=== PATIENT | female | born 1955 | race Caucasian/White ===

== ENCOUNTER → 2018-04-03 10:38 | Outpatient (CLI) | payer MEDICAID, SELFPAY ==
--- NOTE | 2018-04-03 10:40 | MM_ITS ---
MM Dig screening mamm BI w/CAD ORDERING PHYSICIAN : Thomas Puente PATIENT AGE: 62 years GENDER: Female COMPARISON: We have been waiting on previous studies from [facility] but these is been purged INDICATION: ITS.REASON: screening. No hormones. No new complaints. Family history. Mother with breast cancer in her 50s. Sister breast cancer late 40s. TECHNIQUE: Standard CC and MLO images were obtained. Additional axillary cc both breast R2 CAD reviewed. FINDINGS: We have been waiting on previous studies from [facility] but these is been purged Moderately dense inhomogeneous breast tissue pattern. RIGHT BREAST:Right moderate dense breast tissue fairly homogeneous appearance to the right breast with no areas of significant concern. Stable LEFT BREAST: Mild asymmetry. The left breast tissue is most dense technique at central and superior superiorly on MLO view... . It does seem to dissipate somewhat on the CC and axillary cc view with no discrete focal area of significant concern.. However I would suggest follow-up left mammogram 6 months to confirm stability since no prior studies available.. There is a small series of fairly dense series of crush stone likely calcifications at the central breast which it appears most likely benign I can be followed at that time as well. Faintly seen. .. I would encourage annual follow-up however for ongoing evaluation. Again if any prior studies become available would be helpful IMPRESSION: Fairly dense breast bilaterally With mild asymmetry focal area but no of significant concern currently/, no suspicious findings currently. However would suggest a follow-up left mammogram in 6 months to confirm stability the mild asymmetry & ensure stable baseline character. Of minor benign-appearing observations BI-RADS Category: 3 Benign Finding Short Term Follow-up RECOMMENDED FOLLOW-UP: 6M 6 MONTH FOLLOW-UP Follow-up left mammogram 6 months to confirm stable baseline character (A letter has been sent to the patient regarding results of the study.)
== END ==
PROVIDERS: Family Provider Emergency Medicine; PCP Nurse Practitioner Family; Visit Provider Nurse Practitioner Family
DX: Z12.31 Encounter for screening mammogram for malignant neoplasm of breast (principal)
CPT/HCPCS: 77067

== ENCOUNTER 2018-08-11 12:01 | Observation (INO) ==
[2018-08-11 12:25] LABS: Basophils % 0.1 % (0.1-2.0); Eosinophils # 0.1 K/mm3 (0.0-0.4); Eosinophils % 0.5 % (0.1-12.0); Hematocrit 29.8 % (37.0-47.0); Lymphocytes # 0.9 K/mm3 (0.7-4.5); Lymphocytes % 7.4 % (10-50); Mean Corpuscular HGB Conc 33.5 g/dL (31.8-35.4); Mean Corpuscular Hemoglobin 32.1 pg (27.0-31.2); Mean Corpuscular Volume 95.8 fl (81-99); Mean Platelet Volume 7.2 fl (7.4-10.4); Monocytes # 0.6 K/mm3 (0.1-1.0); Neutrophils # 10.1 K/mm3 (1.8-7.8); Neutrophils % 87.1 % (37.0-80.0); Platelet Count 239 K/mm3 (142-424); Red Blood Count 3.11 M/mm3 (4.20-5.40); Red Cell Distribution Width 14.4 % (11.5-17.5); White Blood Count 11.6 K/mm3 (4.8-10.8)
[2018-08-11 12:33] LABS: Albumin Level 3.2 gm/dL (3.4-5.0); Bilirubin,Total 0.5 mg/dL (0.2-1.0); Calcium 7.7 mg/dL (8.5-10.1); Globulin 3.2 gm/dl (1.3-3.2); Total Protein,Serum 6.4 gm/dL (6.4-8.2)
[2018-08-11 12:51] LABS: Lymphocytes % 7 % (10-50); Monocytes % 3 % (2-9); Neutrophils % 81 % (42-76); Total Cells Counted 100
[2018-08-11 12:52] LABS: RBC Morphology Normal
[2018-08-11 13:17] LABS: Activated Partial Thrombo Time 29.6 seconds (23.6-34.0); INR 1.01 (0.9-1.1); Prothrombin Time 10.4 seconds (9.4-11.8)
--- NOTE | 2018-08-11 13:17 | Emergency Department Note ---
ED Disposition Clinical Impression: Alcohol use disorder, Hyponatremia, Anemia, Uterine neoplasm Disposition: Still a Patient Condition on Discharge: Fair Referrals: Provider,Referral, [Primary Care Provider] - - Critical Care Critical Care Time: No Attestation: On 08/11/18, the high probability of a clinically significant, sudden or life threatening deterioration of the following system(s) required my full and direct attention, intervention and personal management. The time I documented below is in addition to time spent performing reported procedures but includes the following listed in this critical care notation. Medical Decision Making - Brodie Inquiry Pt receiving controlled substance: No Brodie was queried for this patient: No Vital Signs: 08/11/18 11:52 08/11/18 12:17 08/11/18 15:28 Temperature 98.0 F Temperature Source Oral Oral Pulse Rate [Right Brachial] 95 H 100 H 114 H Respiratory Rate 18 18 Blood Pressure [Right Arm] 102/56 L 119/72 123/70 Blood Pressure Mean [Right Arm] 71 87 87 Blood Pressure Source [Right Arm] Automatic Cuff Automatic Cuff Automatic Cuff Blood Pressure Position [Right Arm] Sitting Sitting Sitting 02 Sat by Pulse Oximetry 97 98 96 Oxygen Delivery Method Room Air Room Air Room Air - Lab Data Lab Results 08/11/18 12:10: WBC 11.6 H, RBC 3.11 L, Hgb 10.0 L, Hct 29.8 L, MCV 95.8, MCH 32.1 H, MCHC 33.5, RDW 14.4, Plt Count 239, MPV 7.2 L, Neut % (Auto) 87.1 H, Lymph % (Auto) 7.4 L, [place] % (Auto) 5.0, Eos % (Auto) 0.5, Baso % (Auto) 0.1, Neut # (Auto) 10.1 H, Lymph # (Auto) 0.9, [place] # (Auto) 0.6, Eos # (Auto) 0.1, Baso # (Auto) 0.0, Total Counted 100, Neutrophils % (Manual) 81 H, Band Neutrophils % 5.0, Lymphocytes % (Manual) 7 L, Atypical Lymphs % 4.0, Monocytes % (Manual) 3, Platelet Estimate Normal, RBC Morphology Normal 08/11/18 12:10: Sodium 127 L, Potassium 4.0, Chloride 91 L, Carbon Dioxide 22, Anion Gap 18.0 H, BUN 9, Creatinine 1.23 H, Estimated Creat Clear 46, Estimated GFR 44 L, Est GFR ( Amer) 54 L, Glucose 100, Calcium 7.7 L, Total Bilirubin 0.5, AST 25, ALT 16, Alkaline Phosphatase 57, Total Protein 6.4, Albumin 3.2 L, Globulin 3.2, Albumin/Globulin Ratio 1.0 L, Plasma/Serum Alcohol 79 08/11/18 12:10: PT 10.4, INR 1.01, APTT 29.6 08/11/18 12:10: Serum HCG, Qual Negative Result diagrams: 08/11/18 12:10 08/11/18 12:10 Orders (Tests/Meds): ED MEDICATIONS Generic Name Dose Route Start Last Admin Trade Name Freq PRN Reason Stop Dose Admin Sodium Chloride 1,000 mls @ 999 mls/hr 08/11/18 13:30 Sod Chlor 0.9% 1000ml Bag IV 08/11/18 14:30 .Q1H1M CORNEL Sodium Chloride 10 ml 08/11/18 12:04 Saline Flush 10ml Syringe IV 09/10/18 12:03 NEEDED PRN Maintain IV Site Discontinued Medications Generic Name Dose Route Start Last Admin Trade Name Freq PRN Reason Stop Dose Admin Diatrizoate Meglum/Diatrizoate Sod 30 ml 08/11/18 13:12 08/11/18 13:19 Gastrografin 66%-10% 30ml PO 08/11/18 13:13 30 ml ONCE ONE Administration Iopamidol 75 ml 08/11/18 14:41 08/11/18 14:42 [id number]; 75ml Vial IV 08/11/18 14:42 75 ml ONCE ONE Administration Protocol Sodium Chloride 10 ml 08/11/18 14:41 08/11/18 14:42 Rad-Saline Flush 10ml Syringe IV 08/11/18 14:42 10 ml ONCE ONE Administration ORDERS Category Date Time Status CT abdomen pelvis w con Stat Cat Scan 08/11/18 13:14 Taken US pelvis (no fetus) Routine Exams 08/11/18 Taken US transvaginal Stat Exams 08/11/18 12:21 Taken Medical Decision Narrative: The patient continued to have vaginal bleeding the nursing staff had to change for checks from under her. Her heart rate was increased from 102/min to 120/min. I received her ultrasound report that was positive for endometrial thickening 9 mm and a mass that is approximately 5.1 x [address] scan showed moderate fluid noted in the cul-de-sac of the lower pelvis the uterus was enlarged with a surrounding fluid. 1620 I called on-call RESIDENTIAL SALES REPRESENTATIVE physician Dr. Sheehan, did not recommend estrogen-based hormone therapy due to her smoking habits and high risk for DVT and PE. Dr. Sheehan agreed to admit for observation and for H&H monitoring, type and screen 2 units of packed RBCs, and start Depo-Provera 20 mg p.o. twice daily. I discussed the above findings and events with the patient and her family were agreeable for admission and [facility]. Female Urogenital HPI - General Chief complaint: Vaginal Bleeding Stated complaint: suspected vaginal bleeding Time Seen by Provider: 08/11/18 12:15 Mode of Arrival: EMS Limitations: No Limitations Description of Symptoms (Recalled from ER Triage Doc. by RN): vaginal bleeding intermittently - History of Present Illness HPI Narrative: 63 years old white female, alcoholic, s/p left hip replacement, postmenopausal for the past 10 years who developed vaginal bleeding yesterday. She denies having abdominal pain nausea vomiting diarrhea. She denies having hemoptysis hematemesis coffee-ground emesis melanotic stool or bleeding per rectum. MD Complaint: vaginal bleeding Onset (ago): day(s) Radiation: non-radiating Relieving factors: none Exacerbating factors: none Vaginal discharge: blood clots Sexual activity: no : no Associated symptoms: denies other symptoms - Related Data : 0 Para: 0 A: 0 Home Medications Medication Instructions Recorded Confirmed Albuterol Sulfate [Ventolin HFA] 2 puff INHALATION Q4H 08/11/18 08/11/18 Fluticasone/Vilanterol [Breo 1 inh INHALATION Q24H 08/11/18 08/11/18 Ellipta] Lisinopril [Prinivil 5mg Tablet] 5 mg PO DAILY 08/11/18 08/11/18 Loratadine [Claritin] 10 mg PO DAILY 08/11/18 08/11/18 Allergies Allergy/AdvReac Type Severity Reaction Status Date / Time No Known Allergies Allergy Verified 06/18/18 11:47 [facility] History - Hepatitis A Screen Drug use history?: No High risk sexual behaviors?: No History of sexually transmitted infection?: No Currently employed?: No Childcare worker?: No Do you have indoor plumbing?: Yes Do you have electricity?: Yes Attestation statement:: This patient has been screened for Hepatitis A risk factors. I have reviewed the patient's past medical history: Yes Medical History: Reports:: Chronic Obstructive Pulmonary Disease (COPD), Hypertension Other Medical History: Reports: Sinus Problems Comment: Patient states that she does not take the influenza vaccination Other Surgeries: Yes: Other Amputation: No Fractures: No Comment: HIP REPLACEMENT 04/2017 - Social History Educational Level: Completed High School Smoking Status: Never smoker Tobacco Type: cigarettes # Packs/Day (cigarettes): 2 Alcohol Intake: current Alcohol Intake Frequency:: 3 or more drinks per day Substance Use Type: denies use Occupational Status: disabled Housing: apartment Household Members: significant other - Psychiatric History Expresses thoughts of harming self/others: None Suicide Plan Description: No Plan Family Hx:: No significant family history ROS Obtained: Yes All systems reviewed & no additional complaints Physical Exam - General General appearance: alert, in no apparent distress - Head Head exam: atraumatic, normocephalic, normal inspection - Eye Eye exam: Present: normal appearance, PERRL, EOMI. Absent: scleral icterus, nystagmus - ENT ENT exam: Present: normal exam, normal oropharynx, mucous membranes moist, TM's normal bilaterally, normal external ear exam - Neck Neck exam: Present: normal inspection, full ROM, trachea midline. Absent: meningismus, lymphadenopathy - Chest Chest inspection: Present: normal inspection, symmetric chest wall rise. Abs ent: tenderness - Respiratory Respiratory exam: Present: normal lung sounds bilaterally. Absent: respiratory distress, wheezes - Cardiovascular Cardiovascular exam: Present: regular rate, normal rhythm, normal heart sounds. Absent: JVD - Abdominal Exam Abdominal exam: Present: soft, normal bowel sounds. Absent: distention, tenderness, guarding, rebound, rigidity - External exam: Present: normal external exam Bimanual exam: Present: normal bimanual exam, other - Expanded Exam Comment: The bimanual exam was difficult I was unable to palpate her uterus or cervix, pl enty of blood and blood clots. I ordered a CT scan of the abdomen and pelvis with p.o. and IV contrast. - Extremities Exam Extremities exam: Present: normal inspection, full ROM, normal capillary refill. Absent: calf tenderness - Back Exam Back exam: Present: normal inspection. Absent: tenderness - Neurological Exam Neurological exam: Present: alert, oriented X3, CN II-XII intact, motor sensory deficit, reflexes normal - Psychiatric Psychiatric exam: Present: normal affect, normal mood - Skin Skin exam: Present: warm, dry, intact, normal color - Lymphatic Lymphatic Findings: no adenopathy
[2018-08-11 18:15] LABS: Hematocrit 26.2 % (37.0-47.0)
[2018-08-12 06:03] LABS: Basophils % 0.1 % (0.1-2.0); Eosinophils % 0.2 % (0.1-12.0); Hematocrit 24.4 % (37.0-47.0); Hemoglobin 8.1 g/dL (12.2-16.2); Lymphocytes # 1.1 K/mm3 (0.7-4.5); Lymphocytes % 9.8 % (10-50); Mean Corpuscular HGB Conc 33.2 g/dL (31.8-35.4); Mean Corpuscular Hemoglobin 31.8 pg (27.0-31.2); Mean Corpuscular Volume 95.8 fl (81-99); Monocytes # 0.4 K/mm3 (0.1-1.0); Monocytes % 3.2 % (1.7-9.3); Neutrophils % 86.7 % (37.0-80.0); Platelet Count 203 K/mm3 (142-424); Red Blood Count 2.55 M/mm3 (4.20-5.40); Red Cell Distribution Width 14.3 % (11.5-17.5); White Blood Count 11.5 K/mm3 (4.8-10.8)
[2018-08-12 06:08] LABS: Anion Gap 9.8 mEq/L (5-15); Calcium 7.8 mg/dL (8.5-10.1); Potassium 3.8 mmoL/L (3.5-5.1)
[2018-08-12 08:06] LABS: Lymphocytes % 9 % (10-50); Monocytes % 2 % (2-9); Neutrophils % 86 % (42-76); Total Cells Counted 100
[2018-08-12 08:07] LABS: RBC Morphology Normal
--- NOTE | 2018-08-12 15:27 | History & Physical Report ---
OB - H&P: HPI Antepartum - History of Present Illness Chief complaint: vaginal bleeding History of present illness: 63 yo G0 presented to ED after alcohol-related fall incident at home, during which time it was noted that she was having moderate/heavy vaginal bleeding. 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 Family members report that she is a heavy drinker, with typical consumption of 10-12 beers/day, and reported that on 08/10 she fell several times at home due to intoxication, and that at one point, she fell into the coffee table and when someone went to help pick her up, they noticed blood soaked pants and underwear. She was unaware of this bleeding and had not noticed any other vaginal bleeding, and reports that she wears adult underwear because of urinary incontinence, and thinks she would have noticed any vaginal bleeding prior to this. She denied any abdominal pain, distention, N/V/D/C, fever/chills, or urinary symptoms. She has a chronic cough associated with her 2PPD smoking habit, but no acute respiratory symptoms. Upon initial assessment in ED, pelvic exam was limited by patient discomfort and clot in vagina. CT abd/pelvis and pelvic ultrasound noted enlarged uterus 11 x 4 x 5cm but endometrium was difficult to ascertain. A heterogeneous area of echogenicity was noted extending from cervix to uterine fundus, measuring 7 x 4cm and was described as uterine mass vs diffuse blood within uterus. Hgb was noted as 10.0 (down from 14.6 on 07/15/17). She was admitted for observation and medical management, and advised that she would require further testing for tissue sampling of uterus as outpatient. She cannot recall when her last pap screening was done, but guessed that it was a year ago, and was done by a male solution maker who's name she could not recall. She had outpatient consultation with Dr. Barnes in 03/2018 for colonoscopy but never followed up for procedure; she reports that she is "still thinking about it." She is unaware of any sx which would indicate rectal bleeding as a contributing source of current anemia, however she is asymptomatic with an apparently abrupt change in Hgb from 14 to 9 over 48 hours, which is inconsistent with expect physiologic response. Because she smokes 2 PPD, she was advised that hormonal management with estrogen was contra-indicated, and she was started on provera 20mg BID. Initial BAL was noted 79, which was approximately 14 hours after her last drink on the evening of 08/10/18, and catheter was placed in bladder to avoid risk of falling with bathroom trips. Hgb was repeated a few hours later and was noted 9.0, which was appropriate dilutional effect with the IVF bolus she had received, but had further dropped to 8.1 by the following day. She is requesting discharge home and was advised that transfusion of PRBCs was appropriate prior to discharge, even though bleeding had slowed considerably since started on Provera. [facility] History I have reviewed the patient's past medical history: Yes Medical History: Reports:: Chronic Obstructive Pulmonary Disease (COPD), Hypertension Other Medical History: Reports: Sinus Problems Other Surgeries: Yes: Other Amputation: No Fractures: No - *Social History Educational Level: Completed High School Smoking Status: Current every day smoker Tobacco Type: cigarettes # Packs/Day (cigarettes): 2 #Yrs smoked (if former smoker): 10 Alcohol Intake: current Alcohol Intake Frequency:: 3 or more drinks per day (10-12 beers/day (per patient)) Substance Use Type: denies use Occupational Status: unemployed, disabled Housing: apartment Household Members: spouse - Psychiatric History Expresses thoughts of harming self/others: None Suicide Plan Description: No Plan *Family Hx:: No significant family history Para: 0 A: 0 Review of Systems - Review of Systems CONSTITUTIONAL: no fever/chills HEENT: no oral lesions PULMONARY: no shortness of breath or difficulty breathing; + chronic cough CV: no racing heart, palpitations or chest pain ABD: no abdominal pain, N/V/D/C : + brisk vag bleeding SKIN: no new rash or skin lesions EXT: no edema NEURO: no mental status changes with ETOH consumption PSYCH: denies current anxiety/depression Meds Home Medications Medication Instructions Recorded Confirmed Type Albuterol Sulfate [Ventolin HFA] 2 puff INHALATION Q4HP PRN 08/11/18 08/12/18 History Fluticasone/Vilanterol [Breo 1 puff INHALATION Q24H 08/11/18 08/12/18 History Ellipta] Lisinopril [Prinivil 5mg Tablet] 5 mg PO DAILY 08/11/18 08/11/18 History Loratadine [Claritin] 10 mg PO DAILY 08/11/18 08/11/18 History Allergies Allergy/AdvReac Type Severity Reaction Status Date / Time No Known Allergies Allergy Verified 06/18/18 11:47 OB - H&P: Exam - Physical Exam Vital signs: Temp Pulse Resp BP Pulse Ox 98.6 F 108 H 16 119/65 96 08/12/18 08:00 08/12/18 08:00 08/12/18 08:00 08/12/18 08:00 08/12/18 08:00 Narrative: CONSTITUTIONAL: no acute distress. Denies any sx related to ETOH withdrawal. HEENT: mucous membranes moist PULMONARY: breathing unlabored without audible wheezes CV: no tachycardia or visible JVD; normal LE peripheral pulses ABD: soft, NT/ND, no rebound/guarding : deferred after ED exam at pt request SKIN: no visible rash or lesions EXT: edema LEs NEURO: alert/oriented, no altered mental status/confusion noted PSYCH: Cooperative, appropriate mood and demeanor without visible anxiety/dep ression OB - Results - Labs Labs: Short CBC 08/11/18 08/12/18 Range/Units 18:00 05:48 WBC 11.5 H (4.8-10.8) K/mm3 Hgb 9.0 L 8.1 L (12.2-16.2) g/dL Hct 26.2 L 24.4 L (37.0-47.0) % Plt Count 203 (142-424) K/mm3 [facility] 08/12/18 05:48 Sodium 129 L Potassium 3.8 Chloride 98 Carbon Dioxide 25 BUN 6 L D Creatinine 0.62 D Glucose 109 H Calcium 7.8 L OB - A/P Antepartum (1) Post-menopausal bleeding Current visit: Yes Status: Acute (2) Uterine enlargement Current visit: Yes Status: Acute (3) Anemia associated with acute blood loss Current visit: Yes Status: Acute (4) Alcohol use disorder Current visit: Yes Status: Acute (5) Alcohol consumption of more than four drinks per day on alcohol screening Current visit: Yes Status: Acute (6) Cystic disease of liver Current visit: Yes Status: Acute - Additional Plan Additional Information:: Admission for observation Serial labs and vital signs Provera 20mg po BID Discussed possible transfusion if Hgb drops below 8 Prefer to avoid surgical management with D&C at this immediate time with excessive ETOH abuse and anti-coagulant effects Discussed need for f/u office for cervical cytology and endometrial biopsy Will also need f/u with Dr. Barnes for colonoscopy
--- NOTE | 2018-08-12 16:04 | Discharge Summary ---
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 Bleeding slowed considerably with provera 20mg BID (estrogen contra-indicated with smoking 2 PPD), and she was transfused 2 units PRBCs. Eager for discharge on HD #1 and did not want to stay after transfusion complete to recheck H/H. Will f/u in office for further evaluation as recommended. Hospital Course Hospital Course: as documented in HPI Objective Vital signs: Temp Pulse Resp BP Pulse Ox 98.6 F 108 H 16 119/65 96 08/12/18 08:00 08/12/18 08:00 08/12/18 08:00 08/12/18 08:00 08/12/18 08:00 Narrative: CONSTITUTIONAL: no acute distress HEENT: mucous membranes moist PULMONARY: breathing unlabored without audible wheezes CV: no tachycardia or visible JVD; normal LE peripheral pulses ABD: soft, NT/ND, no guarding : deferred SKIN: no visible rash or lesions EXT: no edema LEs NEURO: alert/oriented, no altered mental status PSYCH: appropriate mood and demeanor without visible anxiety/depression Results Labs on day of discharge: Labs from last 24 hours 08/12/18 08/12/18 08/12/18 15:11 05:48 05:48 WBC 11.5 H RBC 2.55 L Hgb 8.1 L Hct 24.4 L MCV 95.8 MCH 31.8 H MCHC 33.2 RDW 14.3 Plt Count 203 MPV 7.0 L Neut % (Auto) 86.7 H Lymph % (Auto) 9.8 L [place] % (Auto) 3.2 Eos % (Auto) 0.2 Baso % (Auto) 0.1 Neut # (Auto) 10.0 H Lymph # (Auto) 1.1 [place] # (Auto) 0.4 Eos # (Auto) 0.0 Baso # (Auto) 0.0 Total Counted 100 Neutrophils % (Manual) 86 H Band Neutrophils % 3.0 Lymphocytes % (Manual) 9 L Monocytes % (Manual) 2 Platelet Estimate Normal RBC Morphology Normal Sodium 129 L Potassium 3.8 Chloride 98 Carbon Dioxide 25 Anion Gap 9.8 BUN 6 L D Creatinine 0.62 D Estimated Creat Clear 57 Estimated GFR 98 Est GFR ( Amer) 118 D Glucose 109 H Calcium 7.8 L Blood Type Blood Type Confirm Pending Antibody Screen Crossmatch ([facility]) 08/11/18 08/11/18 18:00 18:00 WBC RBC Hgb 9.0 L Hct 26.2 L MCV MCH MCHC RDW Plt Count MPV Neut % (Auto) Lymph % (Auto) [place] % (Auto) Eos % (Auto) Baso % (Auto) Neut # (Auto) Lymph # (Auto) [place] # (Auto) Eos # (Auto) Baso # (Auto) Total Counted Neutrophils % (Manual) Band Neutrophils % Lymphocytes % (Manual) Monocytes % (Manual) Platelet Estimate RBC Morphology Sodium Potassium Chloride Carbon Dioxide Anion Gap BUN Creatinine Estimated Creat Clear Estimated GFR Est GFR ( Amer) Glucose Calcium Blood Type O Negative Blood Type Confirm Antibody Screen Negative Crossmatch ([facility]) See Detail DS: Diagnosis - Discharge Diagnosis (1) Post-menopausal bleeding Status: Acute (2) Uterine enlargement Status: Acute (3) Anemia associated with acute blood loss Status: Acute (4) Alcohol use disorder Status: Acute (5) Alcohol consumption of more than four drinks per day on alcohol screening Status: Acute (6) Cystic disease of liver Status: Acute Discharge Plan - Patient Discharge Instructions ACTIVITY: Continue current activity DIET: regular diet - Follow up Plan Follow up with: Karley Sheehan MD [Staff Physician] - Disposition: Home, Self-Assisted Medications: Home Medications Medication Instructions Recorded Confirmed Type Albuterol Sulfate [Ventolin HFA] 2 puff INHALATION Q4HP PRN 08/11/18 08/12/18 History Fluticasone/Vilanterol [Breo 1 puff INHALATION Q24H 08/11/18 08/12/18 History Ellipta] Lisinopril [Prinivil 5mg Tablet] 5 mg PO DAILY 08/11/18 08/11/18 History Loratadine [Claritin] 10 mg PO DAILY 08/11/18 08/11/18 History Medroxyprogesterone Acetate 20 mg PO BID 10 Days #160 tab 08/12/18 Rx [Provera 2.5mg tablet] Prescriptions/Medication Reconciliation: New Medroxyprogesterone Acetate [Provera 2.5mg tablet] 20 mg PO BID 10 Days #160 tab Continue Lisinopril [Prinivil 5mg Tablet] 5 mg PO DAILY Albuterol Sulfate [Ventolin HFA] 2 puff INHALATION Q4HP PRN PRN Reason: Shortness Of Breath Loratadine [Claritin] 10 mg PO DAILY Fluticasone/Vilanterol [Breo Ellipta] 1 puff INHALATION Q24H
== END 2018-08-12 21:16 | disposition home or self-care (01) ==
LOC: OB 12:01 → ER 12:01 → OB 16:59
PROVIDERS: ADMIT Obstetrics & Gynecology; ATTEND Obstetrics & Gynecology
CPT/HCPCS: 36415; 74177; 76830; 76856; 80048; 80053; 84703; 85007; 85014; 85018; 85025; 85610; 85730; 86850; 96365; 96375; 99284; G0378; P9016; Q9967

== ENCOUNTER → 2018-08-28 12:06 | Outpatient (CLI) | payer MEDICAID, SELFPAY ==
[2018-08-28 12:26] LABS: Basophils # 0.1 K/mm3 (0-0.2); Basophils % 0.6 % (0.1-2.0); Eosinophils # 0.2 K/mm3 (0.0-0.4); Eosinophils % 2.3 % (0.1-12.0); Hematocrit 38.2 % (37.0-47.0); Hemoglobin 11.9 g/dL (12.2-16.2); Lymphocytes # 2.5 K/mm3 (0.7-4.5); Lymphocytes % 25.4 % (10-50); Mean Corpuscular HGB Conc 31.2 g/dL (31.8-35.4); Mean Corpuscular Volume 96.1 fl (81-99); Mean Platelet Volume 6.2 fl (7.4-10.4); Monocytes # 0.3 K/mm3 (0.1-1.0); Monocytes % 3.3 % (1.7-9.3); Neutrophils # 6.7 K/mm3 (1.8-7.8); Neutrophils % 68.4 % (37.0-80.0); Platelet Count 578 K/mm3 (142-424); Red Blood Count 3.98 M/mm3 (4.20-5.40); Red Cell Distribution Width 14.1 % (11.5-17.5); White Blood Count 9.9 K/mm3 (4.8-10.8)
[2018-08-28 14:18] LABS: Alanine Aminotransferase 16 U/L (12-78); Albumin Level 3.6 gm/dL (3.4-5.0); Albumin/Globulin Ratio 0.9 (1.1-1.8); Alkaline Phosphatase 66 U/L (46-116); Anion Gap 15.8 mEq/L (5-15); Aspartate Amino Transferase 20 U/L (15-37); Bilirubin,Total 0.3 mg/dL (0.2-1.0); Blood Urea Nitrogen 5 mg/dL (7-18); Calcium 9.2 mg/dL (8.5-10.1); Carbon Dioxide 25 mmol/L (21.0-32.0); Chloride 96 mmol/L (98-107); Creatinine,Serum 0.64 mg/dL (0.55-1.02); Estimated Glomerular Filt Rate 94 ml/min (>60); GFR (African American) 114 ML/MIN (>60); Glucose 93 mg/dL (74-106); Potassium 4.8 mmoL/L (3.5-5.1); Sodium 132 mmol/L (136-145); Total Protein,Serum 7.6 gm/dL (6.4-8.2)
== END ==
PROVIDERS: PCP Nurse Practitioner Family; Visit Provider Obstetrics & Gynecology
DX: N95.0 Postmenopausal bleeding (principal)
CPT/HCPCS: 36415; 80053; 85025

== ENCOUNTER → 2018-09-02 10:40 | Outpatient (CLI) | payer MEDICAID, SELFPAY ==
--- NOTE | 2018-09-02 10:42 | MR_ITS ---
MR pelvis wo/w con CLINICAL INDICATION: Uterine mass and bleeding during pelvic exam, enlarged uterus ITS.REASON: MRI- Uterine Mass ORDERING PHYSICIAN: Karley Sheehan MD PATIENT AGE: 63 years Comparison: 08/11/2018, TECHNIQUE: Multiplanar multiecho sequences are performed without and with contrast. FINDINGS: There is considerable artifact from left hip prosthesis. Previously, the uterus was enlarged. The uterus does appear much less bulky them when compared to the previous exam. Uterus now measures approximately 8 x 2.3 x 4 cm. There was lobulation along the posterior aspect of the uterus as noted on the previous exam which is no longer apparent. There is some heterogeneity of the lower uterine segment. In the fundus of the uterus there is increased T2 signal in both the endometrium and the myometrium with enhancement of the endometrium and myometrium. No obvious pelvic abscess or free fluid. No adnexal mass evident. IMPRESSION: The uterus is slightly large but is less bulky than when compared to previous CT scan. The fundus of the endometrium shows increased T2 signal with intense enhancement of the myometrium and subendometrial tissues. Endometritis is a consideration. There is some heterogeneous signal of the lower uterine segment which may be related to underlying fibroid.. Follow-up ultrasound is recommended.
--- NOTE | 2018-09-02 12:07 | HMH.ITSHM ---
Current Home Medications as stated by this patient Angélica Dolan or agency service representative. []LISINOPRIL LORATADINE MEDROXYPROGESTERONE VENTOLIN
== END ==
PROVIDERS: PCP Nurse Practitioner Family; Visit Provider Obstetrics & Gynecology
DX: N85.9 Noninflammatory disorder of uterus, unspecified (principal)
CPT/HCPCS: 72197; A9576

== ENCOUNTER → 2018-09-14 10:26 | Outpatient (CLI) | payer MEDICAID, SELFPAY ==
[2018-09-14 11:30] LABS: Basophils # 0.1 K/mm3 (0-0.2); Basophils % 0.7 % (0.1-2.0); Eosinophils # 0.3 K/mm3 (0.0-0.4); Eosinophils % 2.9 % (0.1-12.0); Hematocrit 36.5 % (37.0-47.0); Hemoglobin 11.7 g/dL (12.2-16.2); Lymphocytes % 22.8 % (10-50); Mean Corpuscular HGB Conc 32.1 g/dL (31.8-35.4); Mean Corpuscular Hemoglobin 31.5 pg (27.0-31.2); Mean Corpuscular Volume 98.1 fl (81-99); Mean Platelet Volume 7.6 fl (7.4-10.4); Monocytes # 0.4 K/mm3 (0.1-1.0); Monocytes % 4.9 % (1.7-9.3); Neutrophils % 68.7 % (37.0-80.0); Platelet Count 353 K/mm3 (142-424); Red Blood Count 3.72 M/mm3 (4.20-5.40); Red Cell Distribution Width 15.3 % (11.5-17.5); White Blood Count 8.8 K/mm3 (4.8-10.8)
[2018-09-14 12:21] LABS: Alanine Aminotransferase 15 U/L (12-78); Albumin Level 3.9 gm/dL (3.4-5.0); Albumin/Globulin Ratio 1.1 (1.1-1.8); Alkaline Phosphatase 59 U/L (46-116); Anion Gap 15.5 mEq/L (5-15); Aspartate Amino Transferase 19 U/L (15-37); Bilirubin,Total 0.4 mg/dL (0.2-1.0); Blood Urea Nitrogen 7 mg/dL (7-18); Calcium 9.1 mg/dL (8.5-10.1); Carbon Dioxide 24 mmol/L (21.0-32.0); Chloride 96 mmol/L (98-107); Creatinine,Serum 0.61 mg/dL (0.55-1.02); Estimated Glomerular Filt Rate 100 ml/min (>60); GFR (African American) 121 ML/MIN (>60); Globulin 3.4 gm/dl (1.3-3.2); Glucose 89 mg/dL (74-106); Potassium 4.5 mmoL/L (3.5-5.1); Sodium 131 mmol/L (136-145); Total Protein,Serum 7.3 gm/dL (6.4-8.2)
== END ==
PROVIDERS: Visit Provider Obstetrics & Gynecology
DX: Z01.818 Encounter for other preprocedural examination (principal); D64.9 Anemia, unspecified; N95.0 Postmenopausal bleeding
CPT/HCPCS: 36415; 80053; 85025; 93005

== ENCOUNTER → 2018-10-06 13:29 | Outpatient (CLI) | payer MEDICAID, SELFPAY ==
--- NOTE | 2018-10-06 13:31 | MM_ITS ---
MM Dig mamm DX unilat LT CAD INDICATION: Follow-up abnormal mammogram, asymmetric density ORDERING PHYSICIAN: Thomas Puente PATIENT AGE: 63 years COMPARISON: 04/03/2018 TECHNIQUE: Standard images performed along with spot compression views FINDINGS: There is dense fibroglandular tissue which decreases the sensitivity of mammography. There is some asymmetric increased density in the upper aspect of the left breast maintaining some lobulation along with a spot compression view. Some asymmetric density is present in the central aspect of the left breast on the MLO view and the medial aspect of the left breast on the cc view. There is some residual asymmetric density in the medial aspect of the left breast as seen on the cc view measuring 6 mm. Asymmetric density also noted in the infrahilar aspect of the left breast on the MLO view not significant changed may be due to fibroglandular tissue. Benign-appearing calcification once again noted in the outer aspect of the left breast. IMPRESSION: Scattered areas of asymmetric density mainly noted in the upper aspect of the left breast and the medial aspect of the left breast. Recommend ultrasound of the left breast. When the patient returns would also recommend some additional mammographic images of the left breast to include a straight ML view and rolled cc views as well as a focal spot compression views of the medial aspect of the left breast smaller paddle and focal spot view of the inferior aspect of the left breast in the area of asymmetry. BI-RADS Category: 0 Need Additional Imaging Evaluation RECOMMENDED FOLLOW-UP: IMM - IMMEDIATE FOLLOW-UP RECOMMENDED (A letter has been sent to the patient regarding results of the study.)
== END ==
PROVIDERS: PCP Nurse Practitioner Family; Visit Provider Nurse Practitioner Family
DX: R92.8 Other abnormal and inconclusive findings on diagnostic imaging of breast (principal)
CPT/HCPCS: 77065

== ENCOUNTER → 2018-10-20 12:41 | Outpatient (CLI) | payer MEDICAID, SELFPAY ==
--- NOTE | 2018-10-20 12:43 | MM_ITS ---
MM Dig mamm DX unilat LT CAD, US breast LT complete INDICATION: Follow-up abnormal mammogram ORDERING PHYSICIAN: Thomas Puente PATIENT AGE: 63 years COMPARISON: 04/03/2018, 10/06/2018 TECHNIQUE: Problem-solving views performed of the left breast along with left breast ultrasound FINDINGS: There is dense fibroglandular tissue. There are scattered areas of asymmetric density including the upper left breast, central left breast, and inferior left breast. Focal spot compression views are obtained of these regions. No persistent suspicious abnormalities are evident. There is some asymmetric density in the in inferior aspect of the left breast but does appear to compress out as fibroglandular tissue. This is not significant change from 04/03/2019. Benign-appearing calcifications are once again noted not significant changed Left breast ultrasound: At 1:00 near the nipple there is a hypoechoic area probably related to fibroglandular/fibrocystic change. At 2:00 there is a 5 mm hypoechoic nodule. At o'clock there is a 3 mm cyst. Small nodes are present in the axilla. IMPRESSION: No convincing evidence of malignancy. There are scattered areas of asymmetric density along with nonspecific ill-defined area of decreased echogenicity in the 1:00 region. Recommend 6 month mammographic and sonographic follow-up. BI-RADS Category: 3 Probably Benign Finding Short Term Follow-up RECOMMENDED FOLLOW-UP : 6M - 6 MONTH FOLLOW-UP (A letter has been sent to the patient regarding results of the study.)
== END ==
PROVIDERS: PCP Nurse Practitioner Family; Visit Provider Nurse Practitioner Family
DX: R92.8 Other abnormal and inconclusive findings on diagnostic imaging of breast (principal)
CPT/HCPCS: 76641; 77065

== ENCOUNTER → 2018-11-04 13:54 | Outpatient (CLI) | payer MEDICAID, SELFPAY ==
[2018-11-04 14:46] LABS: Basophils # 0.1 K/mm3 (0-0.2); Basophils % 0.8 % (0.1-2.0); Eosinophils # 0.2 K/mm3 (0.0-0.4); Eosinophils % 2.6 % (0.1-12.0); Hematocrit 39.1 % (37.0-47.0); Hemoglobin 13.3 g/dL (12.2-16.2); Lymphocytes % 28.2 % (10-50); Mean Corpuscular HGB Conc 34.1 g/dL (31.8-35.4); Mean Corpuscular Hemoglobin 34.3 pg (27.0-31.2); Mean Corpuscular Volume 100.7 fl (81-99); Mean Platelet Volume 7.2 fl (7.4-10.4); Monocytes # 0.4 K/mm3 (0.1-1.0); Monocytes % 5.9 % (1.7-9.3); Neutrophils # 4.5 K/mm3 (1.8-7.8); Neutrophils % 62.6 % (37.0-80.0); Platelet Count 273 K/mm3 (142-424); Red Blood Count 3.88 M/mm3 (4.20-5.40); Red Cell Distribution Width 14.6 % (11.5-17.5); White Blood Count 7.2 K/mm3 (4.8-10.8)
[2018-11-04 15:52] LABS: Alanine Aminotransferase 30 U/L (12-78); Albumin Level 4.2 gm/dL (3.4-5.0); Albumin/Globulin Ratio 1.1 (1.1-1.8); Alkaline Phosphatase 93 U/L (46-116); Anion Gap 15.5 mEq/L (5-15); Aspartate Amino Transferase 41 U/L (15-37); Bilirubin,Total 0.4 mg/dL (0.2-1.0); Blood Urea Nitrogen 8 mg/dL (7-18); Calcium 9.5 mg/dL (8.5-10.1); Carbon Dioxide 26 mmol/L (21.0-32.0); Chloride 94 mmol/L (98-107); Creatinine,Serum 0.59 mg/dL (0.55-1.02); Estimated Glomerular Filt Rate 104 ml/min (>60); GFR (African American) 125 ML/MIN (>60); Globulin 3.7 gm/dl (1.3-3.2); Glucose 81 mg/dL (74-106); Potassium 4.5 mmoL/L (3.5-5.1); Sodium 131 mmol/L (136-145); Total Protein,Serum 7.9 gm/dL (6.4-8.2)
== END ==
PROVIDERS: Visit Provider Obstetrics & Gynecology
DX: Z01.818 Encounter for other preprocedural examination (principal); N95.0 Postmenopausal bleeding
CPT/HCPCS: 36415; 80053; 85025; 93005

== ENCOUNTER → 2018-12-29 14:06 | Outpatient (CLI) | payer MEDICAID, SELFPAY ==
[2018-12-29 15:13] VITALS: PULSE 82; PULSE 85
== END ==
PROVIDERS: PCP Nurse Practitioner Family; Visit Provider Nurse Practitioner Family
DX: R06.02 Shortness of breath (principal)
CPT/HCPCS: 94060; 94640

== ENCOUNTER → 2019-04-19 08:15 | Outpatient (CLI) | payer MEDICAID, SELFPAY ==
[2019-04-19 08:29] LABS: Basophils # 0.1 K/mm3 (0-0.2); Basophils % 0.8 % (0.1-2.0); Eosinophils # 0.2 K/mm3 (0.0-0.4); Eosinophils % 4.1 % (0.1-12.0); Hematocrit 40.3 % (37.0-47.0); Hemoglobin 13.2 g/dL (12.2-16.2); Lymphocytes # 1.5 K/mm3 (0.7-4.5); Lymphocytes % 26.2 % (10-50); Mean Corpuscular HGB Conc 32.8 g/dL (31.8-35.4); Mean Corpuscular Hemoglobin 32.6 pg (27.0-31.2); Mean Corpuscular Volume 99.5 fl (81-99); Mean Platelet Volume 6.7 fl (7.4-10.4); Monocytes # 0.3 K/mm3 (0.1-1.0); Monocytes % 4.6 % (1.7-9.3); Neutrophils # 3.8 K/mm3 (1.8-7.8); Neutrophils % 64.2 % (37.0-80.0); Platelet Count 307 K/mm3 (142-424); Red Blood Count 4.04 M/mm3 (4.20-5.40); Red Cell Distribution Width 13.2 % (11.5-17.5); White Blood Count 5.8 K/mm3 (4.8-10.8)
[2019-04-19 09:08] LABS: Blood Urea Nitrogen 3 mg/dL (7-18); Calcium 9.1 mg/dL (8.5-10.1); Carbon Dioxide 27 mmol/L (21.0-32.0); Chloride 92 mmol/L (98-107); Creatinine,Serum 0.54 mg/dL (0.55-1.02); Estimated Glomerular Filt Rate 115 ml/min (>60); GFR (African American) 139 ML/MIN (>60); Glucose 89 mg/dL (74-106); Sodium 131 mmol/L (136-145)
== END ==
PROVIDERS: PCP Nurse Practitioner Family; Visit Provider Otolaryngology
DX: Z01.818 Encounter for other preprocedural examination (principal); L72.8 Other follicular cysts of the skin and subcutaneous tissue
CPT/HCPCS: 36415; 80048; 85025

== ENCOUNTER → 2019-04-28 14:10 | Outpatient (CLI) | payer MEDICAID, SELFPAY ==
--- NOTE | 2019-04-28 14:15 | US_ITS ---
PROCEDURE: MM DIG MAMM BI DX W/CAD CLINICAL INDICATION: 6 mth f/u mamm and u/s due after 04/22/19 COMPARISON: [facility] MM Dig screening mamm BI w/CAD from 04/03/2018 DXLT MM Dig mamm DX unilat LT CAD from 10/06/2018 BREASTLT US breast LT complete from 10/20/2018 DXLT MM Dig mamm DX unilat LT CAD from 10/20/2018 US BREAST LT COMPLETE from 04/28/2019 TECHNIQUE: Standard images performed along with spot compression views of the left breast and left breast ultrasound FINDINGS: Average fibroglandular tissue. The right breast has an unremarkable appearance. There is a cluster calcifications are present in the central aspect of the left breast. These appear to have slightly increased in number on the mL and MLO view with some minute calcifications having developed in the interval. Biopsy is therefore recommended by the stereotactic approach. There is an area of asymmetric density in the inferior and medial this may only be related to asymmetric fibroglandular tissue. Left breast ultrasound: At 2 o'clock there is a 6 mm area of hypoechogenicity and may represent a small complex cyst. This is not significantly changed.. There is persistent area of decreased echogenicity at the 1 o'clock region near the nipple. This has some posterior acoustical shadowing is not well-defined. This may merely reflect fibroglandular tissue however this is slightly more prominent compared to the previous exam suggest at least a fine needle aspiration and possible core biopsy with ultrasound guidance at this region. Small cyst is noted at 2 o'clock. The aspect of the left breast which does appear to compress out and is felt to represent fibroglandular tissue. IMPRESSION: Right breast is unremarkable. There is a cluster of calcifications in the central aspect of the left breast. These have appear to slightly increased in number and are mildly suspicious. Stereotactic directed biopsy is suggested Ill-defined decreased echogenicity is present at the 1 o'clock region of the left breast and may be slightly more prominent compared to the previous study. This could be related to the fibroglandular tissue however, fine needle aspiration and possible core biopsy is suggested with sonographic guidance. Both of these biopsies can be performed on the same day. Would 1st suggest ultrasound-guided biopsy to be followed by the stereotactic biopsy. Alternatively, they could be performed on separate days if so desired. BI-RAD Category: 4 Suspicious Abnormality - Biopsy Considered FOLLOW-UP: Ultrasound-guided FNA/core biopsy of the retroareolar region as well as stereotactic directed biopsy of the calcifications in the central left breast (A letter has been sent to the patient regarding results of the study.) Dictated by: Umberto Morley MD 04/30/2019 12:29 Electronically signed by Umberto Morley MD in [place] 04/30/2019 12:29
== END ==
PROVIDERS: PCP Nurse Practitioner Family; Visit Provider Nurse Practitioner Family
DX: R92.8 Other abnormal and inconclusive findings on diagnostic imaging of breast (principal)
CPT/HCPCS: 76641; 77066

== ENCOUNTER → 2019-05-13 09:24 | Outpatient (CLI) | payer MEDICAID, SELFPAY ==
--- NOTE | 2019-05-13 09:29 | MM_ITS ---
PROCEDURE: STEREOTACTIC BREAST BIOPSY LEFT BREAST MM SURGICAL SPECIMEN LT POST BIOPSY MAMMOGRAM CLIP PLACEMENT CLINICAL INDICATION: ABN MAMM AND US LT BREAST Abnormal calcifications left breast COMPARISON: MM DIG MAMM BI DX W/CAD from 04/28/2019 MM SURGICAL SPECIMEN LT from 05/13/2019 TECHNIQUE: Following obtaining informed consent and time-out procedure, the patient was placed in the stereotactic unit and the calcifications localized bystander technique. Local anesthesia was obtained with 1 percent buffered lidocaine lidocaine and deeper anesthesia with lidocaine mixed with epinephrine. A skin omer was then placed and then 9 gauge needle inserted and deemed to be and satisfactory position. Multiple mammotome cores were then obtained. The initial specimen demonstrated at least 1 microcalcification. Additional cores were obtained with questionable additional microcalcifications. A clip was then placed. FINDINGS: Pathology: There are 3 foci suspicious for intraductal adenocarcinoma with rare microcalcifications. Post biopsy mammogram: Post biopsy changes are present in the upper aspect of the left breast near the 1 o'clock position. The clip is present in this area and is approximately 1.8 cm superficial to the main cluster of calcifications. The clips can sometimes be displaced. There is a moderate amount of residual calcifications noted in the biopsy bed. IMPRESSION: Successful mammotome guided biopsy of the left breast showing intraductal adenocarcinoma. There are rare calcifications noted in the specimen with majority of the calcifications still at the cluster within the breast with a clip approximately 1.8 cm superior to the main cluster. Recommend excisional biopsy with hook wire guidance to include both the area of the placed clip and deeper at the main cluster of microcalcifications. Dictated by: Umberto Morley MD 05/14/2019 11:52 Electronically signed by Umberto Morley MD in [place] 05/28/2019 10:17
--- NOTE | 2019-05-13 09:29 | US_ITS ---
PROCEDURE: US FNA BREAST CLINICAL INDICATION: Abnormal ultrasound showing questionable nodule at the 1 o'clock region COMPARISON: US BREAST LT COMPLETE from 04/28/2019 FINDINGS: Technique: Following obtaining informed consent under aseptic conditions and local anesthesia with 1 percent buffered lidocaine, 3 passes were made into the area of sonographic concern with a 21 gauge needle. The patient tolerated the procedure well without evidence of immediate complication. Cytology: Negative for malignant cells IMPRESSION: Ultrasound-guided fine needle aspiration of the area of decreased echogenicity at 1 o'clock and left breast shows benign findings. Please see stereotactic report for additional findings and recommendations the Dictated by: Umberto Morley MD 05/16/2019 22:49 Electronically signed by Umberto Morley MD in [place] 05/28/2019 10:20
== END ==
PROVIDERS: PCP Nurse Practitioner Family; Visit Provider Nurse Practitioner Family
DX: R92.1 Mammographic calcification found on diagnostic imaging of breast (principal); R92.8 Other abnormal and inconclusive findings on diagnostic imaging of breast
CPT/HCPCS: 19081; 76098; 76942; 77065; 88305; 88342; 88360

== ENCOUNTER → 2019-06-07 09:00 | Outpatient (CLI) | payer MEDICAID, SELFPAY ==
[2019-06-07 09:21] LABS: Basophils # 0.1 K/mm3 (0-0.2); Basophils % 0.8 % (0.1-2.0); Eosinophils # 0.3 K/mm3 (0.0-0.4); Eosinophils % 4.1 % (0.1-12.0); Lymphocytes # 1.7 K/mm3 (0.7-4.5); Lymphocytes % 27.5 % (10-50); Mean Corpuscular HGB Conc 33.4 g/dL (31.8-35.4); Mean Corpuscular Hemoglobin 33.3 pg (27.0-31.2); Mean Corpuscular Volume 99.5 fl (81-99); Mean Platelet Volume 7.5 fl (7.4-10.4); Monocytes # 0.3 K/mm3 (0.1-1.0); Monocytes % 5.5 % (1.7-9.3); Neutrophils # 3.9 K/mm3 (1.8-7.8); Neutrophils % 62.2 % (37.0-80.0); Platelet Count 308 K/mm3 (142-424); Red Blood Count 3.92 M/mm3 (4.20-5.40); Red Cell Distribution Width 13.1 % (11.5-17.5); White Blood Count 6.2 K/mm3 (4.8-10.8)
[2019-06-07 10:44] LABS: Anion Gap 15.1 mEq/L (5-15); Blood Urea Nitrogen 4 mg/dL (7-18); Carbon Dioxide 27 mmol/L (21.0-32.0); Chloride 93 mmol/L (98-107); Creatinine,Serum 0.57 mg/dL (0.55-1.02); Estimated Glomerular Filt Rate 108 ml/min (>60); GFR (African American) 130 ML/MIN (>60); Glucose 94 mg/dL (74-106); Potassium 5.1 mmoL/L (3.5-5.1); Sodium 130 mmol/L (136-145)
== END ==
PROVIDERS: Visit Provider Surgery
DX: D05.12 Intraductal carcinoma in situ of left breast (principal)
CPT/HCPCS: 36415; 80048; 85025

== ENCOUNTER → 2019-06-29 14:12 | Outpatient (CLI) | payer MEDICAID, SELFPAY ==
--- NOTE | 2019-06-29 14:13 | US_ITS ---
PROCEDURE: US EXTREMITY LT LIMITED CLINICAL INDICATION: post procedure nodule, follow-up surgery COMPARISON: US BREAST LT COMPLETE from 04/28/2019 US FNA BREAST from 05/13/2019 area of FINDINGS: Ultrasound is performed of the left axilla and not of the breast proper. There are few small nodes in the axilla but no dominant adenopathy is evident. Small amount fluid is noted from the recent surgery IMPRESSION: No dominant adenopathy evident within the axilla by ultrasound Dictated by: Umberto Morley MD 06/29/2019 16:40 Electronically signed by Umberto Morley MD in [place] 06/29/2019 16:40
== END ==
PROVIDERS: PCP Nurse Practitioner Family; Visit Provider Surgery
DX: D05.12 Intraductal carcinoma in situ of left breast (principal)
CPT/HCPCS: 76882

== ENCOUNTER → 2019-07-20 09:56 | Outpatient (CLI) | payer MEDICAID, SELFPAY ==
[2019-07-20 10:26] LABS: Basophils % 0.6 % (0.1-2.0); Eosinophils # 0.3 K/mm3 (0.0-0.4); Eosinophils % 4.2 % (0.1-12.0); Hematocrit 41.2 % (37.0-47.0); Hemoglobin 13.5 g/dL (12.2-16.2); Lymphocytes # 1.5 K/mm3 (0.7-4.5); Lymphocytes % 21.8 % (10-50); Mean Corpuscular HGB Conc 32.7 g/dL (31.8-35.4); Mean Corpuscular Volume 100.9 fl (81-99); Mean Platelet Volume 7.5 fl (7.4-10.4); Monocytes # 0.4 K/mm3 (0.1-1.0); Monocytes % 6.3 % (1.7-9.3); Neutrophils # 4.6 K/mm3 (1.8-7.8); Platelet Count 302 K/mm3 (142-424); Red Blood Count 4.08 M/mm3 (4.20-5.40); White Blood Count 6.9 K/mm3 (4.8-10.8)
[2019-07-20 10:59] LABS: Anion Gap 16.4 mEq/L (5-15); Blood Urea Nitrogen 9 mg/dL (7-18); Calcium 9.4 mg/dL (8.5-10.1); Carbon Dioxide 25 mmol/L (21.0-32.0); Chloride 93 mmol/L (98-107); Creatinine,Serum 0.67 mg/dL (0.55-1.02); Estimated Glomerular Filt Rate 89 ml/min (>60); GFR (African American) 108 ML/MIN (>60); Glucose 99 mg/dL (74-106); Potassium 4.4 mmoL/L (3.5-5.1); Sodium 130 mmol/L (136-145)
== END ==
PROVIDERS: Visit Provider Surgery
DX: C50.912 Malignant neoplasm of unspecified site of left female breast (principal)
CPT/HCPCS: 36415; 80048; 85025

== ENCOUNTER 2019-07-21 09:30 | Outpatient (RCR) | payer MEDICAID, SELFPAY ==
--- NOTE | 2019-07-08 09:21 | HMH.PTOPWND ---
Rehab Outpt Wound Evaluation Rehab OP Wound Evaluation Start: 07/08/19 08:50 Freq: Status: Active Protocol: Document 07/08/19 09:13 FABRICE (Rec: 07/08/19 09:20 PHOTOPHER [id number]) Electronically Signed By Bhaskar Alford, PT 07/08/19 09:13 Subjective/History History History Pt is 63 yowf who presents ~ 3 wks S/P left partial mastectomy with mild edema in the left breast and axilla. She reports no c/o pain, numbness, tingling, or discomfort at this time. She has no c/o decreased left shld ROM or strength also. Her incision presents in a well healed state with minimal obed -wound redness. Her PMH includes COPD, HTN, R JOELLE. Subjective Subjective No c/o at this time. Lymphedema Eval Classification of Lymphedema Secondary Lymphedema Yes Post-Surgical Lymphedema Yes Stemmer's sign Stemmer's Sign no Stage of Lymphedema Lymphedema stages Stage 0 (subjective c/o heaviness and aching) Pain Scale Pain Scale (0-10) 0 Radiation Therapy Has received radiation therapy no Chemo Therapy Has received chemo therapy no Affected Extremities Areas Affected by Lymphedema/Edema Left Upper Extremity,Left Breast,Left Axilla Upper Extremity Measurements Left MCP Measurement (cm) 18.5 Web Space Measurement (cm) 21.0 Ulnar Styloid Process Measurement (cm) 15.4 10 cm Proximal to Ulnar Styloid 18.5 Measurement (cm) 20 cm Proximal to Ulnar Styloid 22.1 Measurement (cm) 30 cm Proximal to Ulnar Styloid 24.5 Measurement (cm) 40 cm Proximal to Ulnar Styloid 28.0 Measurement (cm) 50 cm Proximal to Ulnar Styloid 33.0 Measurement (cm) Manual Lymphatic Drainage Treatment Area MLD Treatment Area Left Upper Extremity,Left Breast,Left Axilla Wound Problems/Impairments Impairments Problems/Impairmments Increased Edema,Lymphedema Present,Impaired Self Care/ Self Management Prognosis Rehab Potential Good Clinical Impression Consistent with Diagnosis Yes Short Term Goals Number of Weeks 4 Decrease Edema Yes Patient to Understand Lymphedema Yes Treatment and Exercises Mcc Goals Number of Weeks
== END 2019-07-21 09:35 | disposition home or self-care (01) ==
LOC: PT 09:30
PROVIDERS: Visit Provider Internal Medicine Medical Oncology
DX: I89.0 Lymphedema, not elsewhere classified (principal); C50.912 Malignant neoplasm of unspecified site of left female breast
CPT/HCPCS: 97162; 97760

== ENCOUNTER 2020-04-02 11:28 | Emergency (ER) | payer MEDICAID, SELFPAY ==
--- NOTE | 2020-04-02 11:37 | HMH.EDFALL ---
ED Disposition Clinical Impression: Hydropneumothorax Rib fractures Qualifiers: Encounter type: initial encounter Rib fracture type: multiple ribs Fracture type: closed Laterality: right Qualified Code(s): S22.41XA - Multiple fractures of ribs, right side, initial encounter for closed fracture Disposition: Left Against Medical Advice Condition on Discharge: Fair Instructions: DI for Rib Fracture, DI for Pneumothorax Prescriptions: Doxycycline Hyclate [Doxycycline 100mg Capsule] 100 mg PO BID 7 Days #14 cap Prescription Printed Hydrocodone/Acetaminophen [Radiant 5-325 Tablet] 1 each PO Q4-6H PRN #9 tab PRN Reason: pain Prescription Printed Referrals: Thomas Puente APRN [Primary Care Provider] - 04/03/20 - Critical Care Critical Care Time: No Attestation: On , the high probability of a clinically significant, sudden or life threatening deterioration of the following system(s) required my full and direct attention, intervention and personal management. The time I documented below is in addition to time spent performing reported procedures but includes the following listed in this critical care notation. Medical Decision Making - Medical Records Medical records reviewed: Yes: I reviewed the patient's medical records. - Brodie Inquiry Pt receiving controlled substance: Yes Brodie was queried for this patient: No Risks and benefits of using a controlled substance: were discussed with pt by me Vital Signs: 04/02/20 11:39 04/02/20 12:30 04/02/20 13:00 Temperature 99.0 F Temperature Source Oral Pulse Rate [Right Radial] 109 H 92 H 108 H Respiratory Rate 17 20 20 Blood Pressure [Right Arm] 146/90 H 141/78 H 146/81 H Blood Pressure Mean [Right Arm] 108 99 102 Blood Pressure Source [Right Arm] Automatic Cuff Automatic Cuff Blood Pressure Position [Right Arm] Supine Supine 02 Sat by Pulse Oximetry 97 100 99 Oxygen Delivery Method Room Air Room Air Room Air 04/02/20 13:30 Temperature Temperature Source Pulse Rate [Right Radial] 97 H Respiratory Rate 20 Blood Pressure [Right Arm] 147/80 H Blood Pressure Mean [Right Arm] 102 Blood Pressure Source [Right Arm] Automatic Cuff Blood Pressure Position [Right Arm] Supine 02 Sat by Pulse Oximetry 99 Oxygen Delivery Method Room Air Orders (Tests/Meds): ORDERS Category Date Time Status XR ribs RT min 3V w CXR1V Stat Exams 04/02/20 11:51 Taken - Radiology Data #1 Image(s): Chest Image Reviewed: Yes I reviewed the patient's radiology results, Yes I reviewed the patient's radiology image, Yes I discussed the image results w/the radiologist Preliminary Findings: Abnormal The lung abdullahi are fairly well expanded. There are multiple right rib fractures primarily axillary line extending from the 3rd rib through the 9th rib. There is a possible nondisplaced old nondisplaced incompletely fused fracture of the right 10th rib posteriorly. There is a small loculated pneumothorax at the right costophrenic angle along with a small pleural effusion possibly blood. The left lung abdullahi well expanded and clear. There surgical clips in the left axillary region which were noted previously. There is mild gaseous dilatation of the splenic flexure of the colon. Medical Decision Narrative: With multiple right-sided rib fractures, but oxygen saturations of 100% on room air. She has a small loculated right hydropneumothorax. I recommended admission, antibiotics and further observation, but patient refuses. I have discussed specifically the risks of worsening condition, , difficulty breathing, uncontrolled pain. Patient is alert and oriented x4 and wants to be discharged home. I have also discussed specifically the use of pain medications and the incentive spirometer. I have advised that the patient does not drink alcohol while using the pain medications and she understands. Patient leaves AGAINST MEDICAL ADVICE. Fall HPI - General Stated Complai
[2020-04-02 11:39] VITALS: BP 146/90; PULSE 109; RESP 17; TEMP 37.2; O2SAT 97; BMI 27.4
--- NOTE | 2020-04-02 11:51 | XR_ITS ---
PROCEDURE: XR RIBS RT MIN 3V W CXR1V CLINICAL INDICATION: fall Complaining of right chest wall pain COMPARISON: CR CXR1VP XR chest portable from 11/13/2018 CR [id number] XR ribs RT min 3V w CXR1V from 12/23/2018 CR XR RIBS RT MIN 3V W CXR1V from 11/06/2019 FINDINGS: The lung abdullahi are fairly well expanded. There are multiple right rib fractures primarily axillary line extending from the 3rd rib through the 9th rib. There is a possible nondisplaced old nondisplaced incompletely fused fracture of the right 10th rib posteriorly. There is a small loculated pneumothorax at the right costophrenic angle along with a small pleural effusion possibly blood. The left lung abdullahi well expanded and clear. There surgical clips in the left axillary region which were noted previously. There is mild gaseous dilatation of the splenic flexure of the colon. IMPRESSION: Multiple acute right rib fractures as noted with small hydropneumothorax Dictated by: Dr. Naresh Baugh MD 04/02/2020 13:40 Dr. Naresh Baugh MD in [place] 04/02/2020 13:40
--- NOTE | 2020-04-02 11:52 | XR_ITS ---
PROCEDURE: XR HIP RT 2-3V W/PELVIS CLINICAL INDICATION: fall COMPARISON: No exams were available for comparison FINDINGS: A total hip arthroplasty is seen left side with no evidence of loosening or other abnormality. The prosthetic acetabulum is fixated to the left iliac bone by threaded screw. The right hip is intact and shows no significant degenerate change. The iliac bones and pubic bones appear intact. There is mild sclerosis of the symphysis pubis. The SI joints are normal. IMPRESSION: Mild osteitis pubis, right hip negative for acute fracture, stable left hip arthroplasty Dictated by: Dr. Naresh Baugh MD 04/02/2020 13:33 Dr. Naresh Baugh MD in [place] 04/02/2020 13:33
--- NOTE | 2020-04-02 12:17 | PC.NURSE ---
pt in radiology
[2020-04-02 12:30] VITALS: BP 141/78; PULSE 92; RESP 20; O2SAT 100
--- NOTE | 2020-04-02 12:38 | PC.NURSE ---
notified RT of incentive spirometer order.
[2020-04-02 13:00] VITALS: BP 146/81; PULSE 108; RESP 20; O2SAT 99
--- NOTE | 2020-04-02 13:04 | PC.NURSE ---
contacted radiology to request that they have the radiologist read pt xrays per ER MD request. spoke with bianca.
[2020-04-02 13:30] VITALS: BP 147/80; PULSE 97; RESP 20; O2SAT 99
[2020-04-02 15:13] VITALS: BP 125/45; PULSE 78; RESP 16; TEMP 36.6; O2SAT 98
== END 2020-04-02 15:14 | disposition left against medical advice (07) ==
PROVIDERS: Emergency Provider Emergency Medicine; PCP Nurse Practitioner Family
DX: S27.301A Unspecified injury of lung, unilateral, initial encounter (principal); S22.41XA Multiple fractures of ribs, right side, initial encounter for closed fracture; I10 Essential (primary) hypertension; J44.9 Chronic obstructive pulmonary disease, unspecified; F17.210 Nicotine dependence, cigarettes, uncomplicated; Z96.641 Presence of right artificial hip joint
CPT/HCPCS: 71101; 73502; 99283

== ENCOUNTER → 2020-04-07 11:26 | Outpatient (CLI) | payer MEDICAID, SELFPAY ==
--- NOTE | 2020-04-07 11:30 | XR_ITS ---
PROCEDURE: XR CHEST 2V CLINICAL HISTORY: pneumothorax Follow-up rib fractures COMPARISON: CR [id number] XR ribs RT min 3V w CXR1V from 12/23/2018 CR XR RIBS RT MIN 3V W CXR1V from 11/06/2019 CR XR RIBS RT MIN 3V W CXR1V from 04/02/2020 FINDINGS: The cardiomediastinal silhouette and pulmonary vascularity are within normal limits. There are multiple right-sided rib fractures from the right 3rd through 9th rib. There is slightly more displaced compared to the previous exam. A definite pneumothorax is not identified. A small pneumo thorax may not be seen with this technique. There is a small right pleural effusion and right basilar atelectatic changes are present. The effusion and the atelectasis has slightly increased compared to the previous exam. Surgical clips are present along the left lower hemithorax IMPRESSION: Multiple displaced right-sided rib fractures with slight increase in right-sided pleural effusion and right basilar atelectasis without obvious pneumothorax Dictated by: Umberto Morley MD 04/07/2020 11:49 Umberto Morley MD in [place] 04/07/2020 11:49
== END ==
PROVIDERS: PCP Nurse Practitioner Family; Visit Provider Surgery
DX: J93.9 Pneumothorax, unspecified (principal)
CPT/HCPCS: 71046

== ENCOUNTER → 2020-04-27 10:03 | Outpatient (CLI) | payer MEDICAID, SELFPAY ==
--- NOTE | 2020-04-27 10:07 | XR_ITS ---
PROCEDURE: XR RIBS RT MIN 3V W CXR1V CLINICAL INDICATION: fall with fractures Pain, follow-up fractures COMPARISON: CR XR RIBS RT MIN 3V W CXR1V from 11/06/2019 CR XR RIBS RT MIN 3V W CXR1V from 04/02/2020 CR XR CHEST 2V from 04/07/2020 FINDINGS: Displaced fractures involve the right 3rd 4th 5th 6 7th and 8th ribs with some overlying pleural reaction. There is small right pleural effusion. No evidence of pneumothorax. The left lung is clear. Surgical clips are present in the left axillary region IMPRESSION: Displaced fractures of the right 3rd through 8th ribs with pleural effusion and overlying pleural thickening. The appearance of the fractures is not significantly changed Dictated by: Umberto Morley MD 04/27/2020 16:57 Umberto Morley MD in [place] 04/27/2020 16:57
== END ==
PROVIDERS: PCP Nurse Practitioner Family; Visit Provider Nurse Practitioner Family
DX: R07.81 Pleurodynia (principal)
CPT/HCPCS: 71101

== ENCOUNTER → 2020-07-21 09:16 | Outpatient (CLI) | payer MEDICAID, SELFPAY ==
--- NOTE | 2020-07-21 09:19 | MM_ITS ---
PROCEDURE: MM DIG SCREENING MAMM BI W/CAD Referring Doctor: Dorothea Duncan Patient Age:65Y CLINICAL INDICATION: SCREENING COMPARISON: CT [id number] CT THORACIC SPINE W/O CONTRAST from 07/14/2015 MG [facility] MM Dig screening mamm BI w/CAD from 04/03/[id number] abdomen pelvis w con from 08/11/2018 MG DXLT MM Dig mamm DX unilat LT CAD from 10/06/2018 MG DXLT MM Dig mamm DX unilat LT CAD from 10/20/2018 MG MM DIG MAMM BI DX W/CAD from 04/28/2019 US US BREAST LT COMPLETE from 04/28/2019 US US FNA BREAST from 05/13/2019 MG MM SURGICAL SPECIMEN LT from 05/13/2019 MG MM CLIP PLACEMENT LT from 05/13/2019 MG MM STEREOTACTIC LOC LT from 05/13/2019 MG MM NEEDLE LOC LT from 06/16/2019 TECHNIQUE: Standard CC and MLO images were obtained. R2 CAD reviewed. Bilateral digital breast tomosynthesis included. FINDINGS: Interval LEFT BREAST lumpectomy in 2019 with decreased volume of the left breast from such. Postsurgical changes most evident towards the superior breast with surgical clips towards axillary tail. Diffuse skin thickening from radiation and mild architectural distortion superior breast at site of lumpectomy with a small fairly dense calcification here may the the reflecting fat necrosis... The MLO tomosynthesis image particularly nicely demonstrates mild retraction associated with architectural changes here at lumpectomy site and this small most likely fat necrosis calcifications in this area. To be cautious I have would suggest 4--6 months follow-up to left breast to further confirm stability of this area to follow these calcifications since were some calcifications targeted on previous biopsies of of the (see March 2018 MLO view.. And subsequently the localized calcifications next to wire hook smaller on May 2019 MLO.) I do not find specimen radiograph from prior excisional biopsy and there is also slight motion on today's studies-thus follow-up 4-6 months suggested. No focal mass on today's study only the architectural distortion which appears to be from the biopsy RIGHT BREAST: Moderate density heterogeneous breast tissue but similar pattern to previous 2019 and 2018 studies with no focal area of significant concern. However you may want to consider including a ultrasound at some point in follow-up of for example with next year's screening procedure in this higher risk patient and given the slight heterogeneous character breast.; But given the overall stability appearance right breast, a follow-up 1 year of would be adequate at this point. IMPRESSION: Left breast- . Interval May 2019 left breast lumpectomy and radiation . The left breast is now smaller in size with postsurgical changes at superior left breast. With mild architectural distortion but no new mass density... Diffuse skin thickening post radiation . I would note small fairly dense calcification superior left breast which appears to be along the surgical tract-may merely reflect fat necrosis post biopsy, however I would suggest a follow-up left mammogram with magnification views in 4-6 months to follow these calcifications and better assure stability to this region Right breast. . No new areas of concern.. follow-up 1 year right breast will be adequate . Heterogeneous breast. (Might consider including right breast ultrasound in follow-up to service baseline given heterogeneous pattern and patient history) BI-RAD Category: 3 Probably Benign Finding Short Term Follow-up FOLLOW-UP: 4M- 6 Month Follow-up Left mammogram with magnification views superior left breast in 4-6 months suggested (A letter has been sent to the patient regarding results of the study.) Dictated by: Yovany Davenport MD 07/24/2020 10:44 Dhaval
== END ==
PROVIDERS: PCP Nurse Practitioner Family; Visit Provider Internal Medicine Medical Oncology
DX: Z12.31 Encounter for screening mammogram for malignant neoplasm of breast (principal)
CPT/HCPCS: 77063; 77067

== ENCOUNTER 2021-04-29 19:27 | Emergency (ER) | payer MEDICAID, SELFPAY ==
[2021-04-29 19:24] VITALS: BP 108/63; PULSE 100; RESP 20; TEMP 36.8; O2SAT 98; BMI 23.0
--- NOTE | 2021-04-29 19:30 | XR_ITS ---
PROCEDURE INFORMATION: Exam: XR Right Hip Exam date and time: 04/29/2021 7:30 PM Age: 65 years old Clinical indication: Hip pain; Right hip; Additional info: Hip pain RT TECHNIQUE: Imaging protocol: XR Right hip. Views: 2 or 3 views hip with pelvis when performed. COMPARISON: CR XR HIP RT 2-3V W/PELVIS 04/02/2020 12:10 PM FINDINGS: Bones/joints: There is a comminuted fracture of the base of the right superior pubic ramus which extends into the acetabulum, and involves the right quadrilateral plate. There is a 2nd fracture noted along the right inferior pubic ramus. There is medial migration of the proximal right femur. There is left total hip arthroplasty identified. Degenerative changes noted within the sacroiliac joints and within the symphysis pubis. Soft tissues: Unremarkable. IMPRESSION: Comminuted fracture of the base of the right superior pubic ramus which migrates into the quadrilateral plate and acetabulum with medial migration of the proximal femur. A 2nd fracture of the right inferior pubic ramus is identified.
--- NOTE | 2021-04-29 19:52 | PC.NURSE ---
patient to radiology
[2021-04-29 20:02] VITALS: BP 132/81; PULSE 94; O2SAT 98
[2021-04-29 20:19] VITALS: BP 132/81; PULSE 91; RESP 18; TEMP 36.7; O2SAT 97
== END 2021-04-29 20:23 | disposition left against medical advice (07) ==
LOC: ER 19:28
PROVIDERS: Emergency Provider Emergency Medicine; PCP Nurse Practitioner Family
DX: M79.604 Pain in right leg (principal)
CPT/HCPCS: 73502; 99282

== ENCOUNTER 2021-11-22 09:09 | Emergency (ER) | payer MEDICAID, SELFPAY ==
--- NOTE | 2021-11-22 09:13 | XR_ITS ---
FINAL REPORT CLINICAL HISTORY: fall X 3 MONTHS AGO, RT HIP PAIN COMPARISON: 04/29/2021 FINDINGS: RIGHT HIP Two views of the right hip demonstrate mild right hip degenerative change. Again seen are subacute fractures of the right superior and inferior pubic rami with interval healing. A 2nd fracture in the medial aspect of the right superior pubic ramus is either better visualized on today's exam or new from prior exam but subacute. Patient is status post left hip arthroplasty. Mild vascular calcifications are noted. IMPRESSION: Subacute fracture in the medial aspect of the right superior pubic ramus, either better visualized than on prior exam or new from prior exam. Interval healing of previously seen right superior and inferior pubic rami fractures. Reviewed, Interpreted and Dictated by Taruus Rivera III, MD Transcribed by Shelia Patiño Authenticated by Taurus Rivera III, MD on 11/22/2021 10:05:28 AM [facility]
[2021-11-22 09:15] VITALS: BP 151/92; PULSE 83; RESP 19; TEMP 37.1; O2SAT 97; BMI 26.1
--- NOTE | 2021-11-22 09:35 | HMH.EDUTC ---
[facility] [place] Clinical Impression: Pubic ramus fracture Qualifiers: Encounter type: initial encounter Fracture type: closed Laterality: right Qualified Code(s): S32.591A - Other specified fracture of right pubis, initial encounter for closed fracture Disposition: Home, Self-Care Condition on Discharge: Good Instructions: Acetaminophen (Alternative Therapy), Pelvic Fracture, Ibuprofen Additional Instructions: *weight bearing as tolerated *Follow up with Orthopedics as scheduled Use walker to get around and be careful *Ibuprofen 600-800mg every 6-8 hours as needed for pain an inflammation. If need something more can take Tylenol in between doses of Ibuprofen to help Immediately follow up with your family doctor for new or worsening of symptoms, or no noticeable improvement over the next 3-5 days Referrals: Thomas Puente APRN [Primary Care Provider] - Aldo Ron MD [Staff Physician] - 11/28/21 2:00 pm Time of Disposition: 10:35 Medical Decision Making - Brodie Inquiry Pt receiving controlled substance: No Brodie was queried for this patient: No Vital Signs: 11/22/21 09:15 11/22/21 10:37 Temperature 98.7 F 98.7 F Temperature Source Oral Pulse Rate 83 Pulse Rate [Right Brachial] 83 Respiratory Rate 19 19 Blood Pressure 151/92 H Blood Pressure [Right Arm] 151/92 H Blood Pressure Mean [Right Arm] 111 Blood Pressure Source [Right Arm] Automatic Cuff Blood Pressure Position [Right Arm] Sitting 02 Sat by Pulse Oximetry 97 Oxygen Delivery Method Room Air - Radiology Data #1 Image(s): Pelvis, Hip Image Reviewed: Yes I have reviewed radiologist's interpretation IMPRESSION: Subacute fracture in the medial aspect of the right superior pubic ramus, either better visualized than on prior exam or new from prior exam. Interval healing of previously seen right superior and inferior pubic rami fractures. - Physician Consults Physician Consulted: Dr Ron Time: 10:20 Reason -: Orthopedic Eval/Care Comment/Response: Called office spoke with [place] Ron to call back Office called back with appointment for November 28 at 2pm Medical Decision Narrative: Patient and family agitated and wanting to leave Discussed with patient and family about importance of waiting until we have spoke with Orthopedics and PCP [facility] [place] - General Stated complaint: rt hip pain Time Seen by Provider: 11/22/21 09:35 Mode of Arrival: Ambulatory Source of Information: Patient Limitations: No Limitations Description of Symptoms (Recalled from Triage Doc. by RN): PATIENT C/O INJURY TO RIGHT HIP WHEN SHE FELL 3 MONTHS AGO HEENT Symptoms (Recalled from RN notes): No Resp Symptoms (Recalled from RN notes): No Skin Symptoms (Recalled from RN notes): No MS Symptoms (Recalled from RN notes): Yes Functional Status (Recalled from RN notes): WNL - History of Present Illness Provider Complaint: Patient state that she fell about 3 mths ago and she has been having pain in her right hip area on and off since States that she is able to walk and get around but certain movements or walking alot causes it to start hurting - Related Data Previous Rx's Medication Instructions Recorded loratadine 10 mg capsule 10 mg PO DAILY #90 cap 05/04/20 albuterol sulfate 90 mcg/actuation See Rx Instructions .ROUTE 03/30/21 aerosol inhaler .COMPLEX #18 g fluticasone 250 mcg-salmeterol 50 See Rx Instructions .ROUTE 10/08/21 mcg/dose blistr powdr for .COMPLEX #60 each inhalation lisinopril 10 mg tablet See Rx Instructions .ROUTE 10/08/21 .COMPLEX #90 tab Allergies Allergy/AdvReac Type Severity Reaction Status Date / Time No Known Allergies Allergy Verified 05/02/21 10:42 - Worker's Comp Is this a Worker's Comp case?: No [facility] History - Hepatitis A Screen Drug use history?: No High risk sexual behaviors?: No History of sexually transmitted infection?: No Currently employed?: No Childcare worker?: No Do you h
[2021-11-22 10:37] VITALS: BP 151/92; PULSE 83; RESP 19; TEMP 37.1; O2SAT 97
== END 2021-11-22 10:39 | disposition home or self-care (01) ==
PROVIDERS: Emergency Provider Nurse Practitioner; PCP Nurse Practitioner Family
DX: S32.591A Other specified fracture of right pubis, initial encounter for closed fracture (principal); W01.0XXA Fall on same level from slipping, tripping and stumbling without subsequent striking against object, initial encounter; Y92.019 Unspecified place in single-family (private) house as the place of occurrence of the external cause; I10 Essential (primary) hypertension; J44.9 Chronic obstructive pulmonary disease, unspecified; F17.210 Nicotine dependence, cigarettes, uncomplicated; Z79.899 Other long term (current) drug therapy
CPT/HCPCS: 73502; 99212; G0463

== ENCOUNTER → 2022-02-19 08:48 | Outpatient (CLI) | payer MEDICAID, SELFPAY ==
--- NOTE | 2022-02-19 08:52 | XR_ITS ---
FINAL REPORT CLINICAL HISTORY: pelvic rami fracture COMPARISON: November 22, 2021 FINDINGS: AP PELVIS: A single view of the pelvis was obtained. There are chronic appearing fractures of the right superior and inferior pubic rami. There is moderate degenerative change of the right hip. There is postoperative change of the left hip. Soft tissues are unremarkable. IMPRESSION: Chronic appearing superior and inferior right pubic rami fractures. Reviewed, Interpreted and Dictated by Taurus Rivera III, MD Transcribed by Federico Parrish Authenticated and [facility]
== END ==
PROVIDERS: PCP Nurse Practitioner Family; Visit Provider Orthopaedic Surgery
DX: S32.9XXA Fracture of unspecified parts of lumbosacral spine and pelvis, initial encounter for closed fracture (principal)
CPT/HCPCS: 72170

== ENCOUNTER → 2022-05-27 10:22 | Outpatient (CLI) | payer MEDICAID, SELFPAY ==
[2022-05-27 14:51] LABS: Basophils # 0.1 K/mm3 (0-0.2); Basophils % 1.8 % (0.1-2.0); Eosinophils # 0.3 K/mm3 (0.0-0.4); Hematocrit 39.7 % (37.0-47.0); Hemoglobin 13.3 g/dL (12.2-16.2); Lymphocytes # 1.5 K/mm3 (0.7-4.5); Lymphocytes % 24.2 % (10-50); Mean Corpuscular HGB Conc 33.4 g/dL (31.8-35.4); Mean Corpuscular Hemoglobin 32.3 pg (27.0-31.2); Mean Corpuscular Volume 96.7 fl (81-99); Mean Platelet Volume 8.3 fl (7.4-10.4); Monocytes # 0.4 K/mm3 (0.1-1.0); Monocytes % 6.7 % (1.7-9.3); Neutrophils % 63.3 % (37.0-80.0); Platelet Count 422 K/mm3 (142-424); Red Blood Count 4.11 M/mm3 (4.20-5.40); Red Cell Distribution Width 14.1 % (11.5-17.5); White Blood Count 6.3 K/mm3 (4.8-10.8)
[2022-05-27 14:57] LABS: Alanine Aminotransferase 10 U/L (12-78); Albumin Level 4.1 g/dl (3.5-5.0); Albumin/Globulin Ratio 1.5 (1.1-1.8); Alkaline Phosphatase 166 U/L (38-126); Anion Gap 14.5 mEq/L (5-15); Aspartate Amino Transferase 26 U/L (14-36); Bilirubin,Total 0.4 mg/dl (0.2-1.3); Blood Urea Nitrogen 2 mg/dl (7-17); Calcium 8.7 mg/dl (8.4-10.2); Carbon Dioxide 27 mmol/L (22.0-30.0); Chloride 93 mmol/L (98-107); Chol/HDL Ratio 2.7 (1-3.5); Cholesterol 200 mg/dl (140-200); Estimated Glomerular Filt Rate 124 ml/min (>60); GFR (African American) 150 ML/MIN (>60); Globulin 2.8 g/dL (1.3-3.2); Glucose 85 mg/dl (74-100); HDL Cholesterol 74 mg/dl (40-60); Potassium 5.5 mmoL/L (3.5-5.1); Sodium 129 mmol/L (136-145); Total Protein,Serum 6.9 g/dl (6.3-8.2); Triglycerides 86 mg/dl (30-150); VLDL Cholesterol 17 mg/dL (0-40)
[2022-05-27 15:08] LABS: Direct LDL Cholesterol 97.59 mg/dL (100-129)
[2022-05-27 15:15] LABS: Free T4 (Free Thyroxine) 0.96 ng/dl (0.78-2.19)
[2022-05-27 15:18] LABS: 25-OH Vitamin D, Total < 12.8 ng/mL (30-100)
[2022-05-27 15:28] LABS: Thyroid Stimulating Hormone 2.83 uIU/mL (0.465-4.68)
== END ==
PROVIDERS: PCP Emergency Medicine; Visit Provider Emergency Medicine
DX: D64.9 Anemia, unspecified (principal); I10 Essential (primary) hypertension; E55.9 Vitamin D deficiency, unspecified
CPT/HCPCS: 80053; 80061; 82306; 84439; 84443; 85025

== ENCOUNTER 2022-07-09 15:23 | Emergency (ER) | payer MEDICAID, SELFPAY ==
[2022-07-09 15:20] VITALS: BMI 27.4
--- NOTE | 2022-07-09 15:21 | CT_ITS ---
FINAL REPORT CLINICAL HISTORY: ams, possible seizure, very confused, unable to follow instructions to hold still for cat scan of head. FINDINGS: Axial images of the head were obtained without contrast. Coronal reformatted images were also obtained. This study was performed with techniques to keep radiation doses as low as reasonably achievable (ALARA). Individualized dose reduction techniques using automated exposure control or adjustment of mA and/or kV according to the patient's size were employed. There is generalized age-appropriate atrophy. Periventricular low-attenuation areas are seen consistent with mild chronic ischemic changes. There is no evidence of intracranial hemorrhage or mass. There is no evidence of acute infarct. There is no evidence of shift of the midline structures. No skull abnormality is seen on the bone window images. IMPRESSION: Atrophy and mild periventricular chronic ischemic changes. No acute intracranial abnormality identified. Reviewed, Interpreted and Dictated by Taurus Rivera III, MD Transcribed by Negin Bazzi Authenticated and [facility]
[2022-07-09 15:23] VITALS: BP 161/94; PULSE 98; RESP 18; TEMP 36.7; O2SAT 99; BMI 27.4
--- NOTE | 2022-07-09 15:24 | PC.NURSE ---
rad notified head CT order
--- NOTE | 2022-07-09 15:32 | PC.NURSE ---
pt to CT
[2022-07-09 16:01] VITALS: BP 139/92; PULSE 108; RESP 18; O2SAT 99
[2022-07-09 16:01] LABS: Chloride 87 mmol/L (98-107); Potassium 3.6 mmoL/L (3.5-5.1); Sodium 125 mmol/L (136-145)
[2022-07-09 16:02] LABS: Basophils # 0.1 K/mm3 (0-0.2); Basophils % 0.9 % (0.1-2.0); Eosinophils # 0.3 K/mm3 (0.0-0.4); Eosinophils % 3.9 % (0.1-12.0); Hematocrit 38.5 % (37.0-47.0); Hemoglobin 12.7 g/dL (12.2-16.2); Lymphocytes # 1.8 K/mm3 (0.7-4.5); Lymphocytes % 25.3 % (10-50); Mean Corpuscular Hemoglobin 32.1 pg (27.0-31.2); Mean Corpuscular Volume 97.2 fl (81-99); Mean Platelet Volume 7.7 fl (7.4-10.4); Monocytes # 0.4 K/mm3 (0.1-1.0); Monocytes % 5.7 % (1.7-9.3); Neutrophils # 4.4 K/mm3 (1.8-7.8); Neutrophils % 64.2 % (37.0-80.0); Platelet Count 366 K/mm3 (142-424); Red Blood Count 3.96 M/mm3 (4.20-5.40); Red Cell Distribution Width 14.1 % (11.5-17.5); White Blood Count 6.9 K/mm3 (4.8-10.8)
[2022-07-09 16:03] LABS: Blood Urea Nitrogen 3 mg/dl (7-17); Creatinine Clearance Estimated 65 mL/min (50-200); Estimated Glomerular Filt Rate 124 ml/min (>60); GFR (African American) 150 ML/MIN (>60)
[2022-07-09 16:04] LABS: Alanine Aminotransferase 17 U/L (12-78); Albumin Level 4.1 g/dl (3.5-5.0); Albumin/Globulin Ratio 1.5 (1.1-1.8); Alkaline Phosphatase 115 U/L (38-126); Anion Gap 12.6 mEq/L (5-15); Aspartate Amino Transferase 31 U/L (14-36); Bilirubin,Total 0.2 mg/dl (0.2-1.3); Calcium 8.8 mg/dl (8.4-10.2); Carbon Dioxide 29 mmol/L (22.0-30.0); Globulin 2.8 g/dL (1.3-3.2); Glucose 95 mg/dl (74-100); Total Protein,Serum 6.9 g/dl (6.3-8.2)
[2022-07-09 16:30] VITALS: BP 161/90; PULSE 109; RESP 18; O2SAT 100
--- NOTE | 2022-07-09 16:50 | PC.NURSE ---
pt significant other at BS, stating pt is telling him she is ready to go home. Pt has confused speech noted, pt will be answer to answer some questions and then say things that are unrelated. Assisted pt to the restroom, pt unable to urinate. pt tolerated ambulation with 1 staff assist.
--- NOTE | 2022-07-09 16:58 | PC.NURSE ---
MIGUEL HORAN at
[2022-07-09 17:01] VITALS: BP 154/108; PULSE 108; RESP 18; O2SAT 100
--- NOTE | 2022-07-09 17:06 | HMH.EDGENADL ---
Discharge Plan Disposition Patient Disposition: Left Against Medical Advice Condition: Fair Chief Complaint: Altered Mental Status Prescriptions Prescriptions: No Action methylprednisolone [Medrol (Neeraj)] 4 mg tablets,dose pack See Rx Instructions PO PER PKG DIR Qty: 21 0RF Rx Instructions: PO PER PKG DIR loratadine 10 mg capsule 10 mg PO DAILY Qty: 90 0RF lisinopril 10 mg tablet See Rx Instructions .ROUTE .COMPLEX Qty: 90 1RF Dose Instruction: TAKE 1 TABLET BY MOUTH ONCE DAILY Rx Instructions: TAKE 1 TABLET BY MOUTH ONCE DAILY fluticasone propion-salmeterol [Advair Diskus] 250-50 mcg/dose blister with device See Rx Instructions .ROUTE .COMPLEX Qty: 60 3RF Dose Instruction: INHALE 1 PUFF BY MOUTH TWICE DAILY FOR ALLERGY SYMPTOMS Rx Instructions: INHALE 1 PUFF BY MOUTH TWICE DAILY FOR ALLERGY SYMPTOMS albuterol sulfate [Ventolin HFA] 90 mcg/actuation HFA aerosol inhaler See Rx Instructions .ROUTE .COMPLEX Qty: 18 1RF Dose Instruction: 2 PUFFS BY MOUTH EVERY FOUR HOURS NEEDED FOR SHORTNESS OF BREATH Rx Instructions: 2 PUFFS BY MOUTH EVERY FOUR HOURS NEEDED FOR SHORTNESS OF BREATH Referrals Follow up/Referrals: Provider,Referral, MD [Primary Care Provider] - See instructions Clinical Impressions Clinical Impression: Seizure, Expressive aphasia Discharge ED Provider: Zaid Cotto General Adult HPI General Chief complaint: Altered Mental Status Stated complaint: seizure Time Seen by Provider: 07/09/22 16:52 Mode of Arrival: EMS Source of Information: EMS Limitations: Altered Mental Status Description of Symptoms (Recalled from ER Triage Doc. by RN): Upon arrival to ED pt is alert, oriented to person only. Per EMS report they were called out for pt having a seizure at her home. States they are unsure if pt has hx of seizures, states pt was not seizing upon their arrival. States pt vomited while in route. States pt was combative, confused not cooperative with care in route to ED. Pt is calm during triage, pt doesnt know why she is at the hospital. Pt able to move all extremities equally. History of Present Illness HPI narrative: History obtained from patient and significant other. Her significant other has been with her for 32 years, but they are not . He was not present when the event happened today. Apparently there was some female with the patient who said that she passed out . That person is not currently here and I cannot obtain further history at this time. Apparently when EMS arrived the patient was combative and confused. Currently she states that she has no complaints and she wants to go home. However her speech is abnormal. She has a history of breast cancer but is not currently getting any treatment. Significant other says she has been diagnosed with cancer for 7 to 8 years and has not had any treatment in quite some time. She has a history of alcohol abuse, but has not had anything to drink for quite some time. 5:15 PM: The patient's friend who was with her when the event happened has been found in the cafeteria. I spoke with her. She states that the patient was acting normally, she had been with her for a couple of hours. The patient went to the bathroom came back and started shaking and fell to the floor. The shaking lasted for some time and she was making choking sounds with her breathing. Afterwards she was very confused and combative. Her friend states that the patient has a history of seizures. She reportedly has been on some sort of seizure medication but has not taken it in some time. The patient's friend got the patient's sister on the phone who also was present at the scene. She was not there when the event happened but the friend called her and she came over afterwards and saw the patient in her confused state. The sister confirms that the patient has a history of seizures. She does not know what he
[2022-07-09 17:30] VITALS: BP 154/108; PULSE 108; RESP 18; TEMP 36.7; O2SAT 100
--- NOTE | 2022-07-09 17:30 | PC.NURSE ---
AMA form signed at this time per pt and significant other who was at BS with pt and is stating he is going to take her home. Pt is adamant that she is going home, does not want to stay at the hospital and does not want any further testing. Pt is alert, oriented to person, place once told where she was, and to situation. Pt does have word salad speech but pt is able to recall what is told to her. ER MD is aware and has had a lengthy discussion with pt and her significant other r/t further testing and risks of leaving hospital and return precautions.
[2022-07-09 18:21] LABS: Lactic Acid 2.1 mmol/L (0.7-2.1)
== END 2022-07-09 17:30 | disposition left against medical advice (07) ==
PROVIDERS: Emergency Provider Emergency Medicine
DX: G40.909 Epilepsy, unspecified, not intractable, without status epilepticus (principal); R41.82 Altered mental status, unspecified; R11.10 Vomiting, unspecified; R45.6 Violent behavior; E87.0 Hyperosmolality and hypernatremia; F10.21 Alcohol dependence, in remission; Z79.51 Long term (current) use of inhaled steroids; Z79.52 Long term (current) use of systemic steroids; Z79.899 Other long term (current) drug therapy; Z85.3 Personal history of malignant neoplasm of breast; Z87.440 Personal history of urinary (tract) infections
CPT/HCPCS: 70450; 80053; 83605; 85025; 99285

== ENCOUNTER → 2022-07-18 08:55 | Outpatient (CLI) | payer MEDICARE, MEDICAID, SELFPAY ==
[2022-07-18 10:35] LABS: Anion Gap 13.3 mEq/L (5-15); Blood Urea Nitrogen 2 mg/dl (7-17); Calcium 9.5 mg/dl (8.4-10.2); Carbon Dioxide 25 mmol/L (22.0-30.0); Chloride 93 mmol/L (98-107); Estimated Glomerular Filt Rate 101 ml/min (>60); GFR (African American) 122 ML/MIN (>60); Glucose 95 mg/dl (74-100); Potassium 4.3 mmoL/L (3.5-5.1); Sodium 127 mmol/L (136-145)
== END ==
PROVIDERS: PCP Emergency Medicine; Visit Provider Emergency Medicine
DX: E87.5 Hyperkalemia (principal)
CPT/HCPCS: 36415; 80048

== ENCOUNTER 2023-06-18 12:19 | Emergency (ER) | payer MEDICARE, MEDICAID, SELFPAY ==
[2023-06-18] VITALS (12 sets, daily range): BP systolic 150–193; BP diastolic 74–130; PULSE 75–132; RESP 14–25; TEMP 36.6–37.2; O2SAT 84–100; BMI 23.3
--- NOTE | 2023-06-18 12:21 | PC.NURSE ---
Stroke Alert called
--- NOTE | 2023-06-18 12:21 | PC.NURSE ---
Dr. White at BS for pt eval
--- NOTE | 2023-06-18 12:24 | PC.NURSE ---
Fall risk bracelet placed on patients wrist.
--- NOTE | 2023-06-18 12:25 | XR_ITS ---
FINAL REPORT CLINICAL HISTORY: Altered mental status COMPARISON: 04/07/2020 FINDINGS: A single portable view of the chest was obtained. The heart size and pulmonary vascularity are within normal limits. The mediastinum is within normal limits. No acute pulmonary abnormality is identified. Mild scarring is noted. There are multiple chronic right rib fractures. IMPRESSION: No active cardiopulmonary disease. Reviewed, Interpreted and Dictated by Taurus Rivera III, MD Transcribed by Juana Barrientos Authenticated and . [facility]
--- NOTE | 2023-06-18 12:25 | CT_ITS ---
FINAL REPORT TECHNIQUE: Thin section axial CT with IV contrast supplemented with multiplanar reconstruction under CT angiogram protocol. 3-D reconstructions were performed. This study was performed with techniques to keep radiation doses as low as reasonably achievable (ALARA). Individualized dose reduction techniques using automated exposure control or adjustment of mA and/or kV according to the patient''s size were employed. CLINICAL HISTORY: stroke alert FINDINGS: The distal vertebral, basilar and distal internal carotid arteries have an unremarkable appearance. No aneurysm is seen. Major intracranial vessels are patent without significant stenosis. IMPRESSION: No significant stenosis identified. Reviewed, Interpreted and Dictated by Taurus Rivera III, MD Transcribed by Alice Parrish Authenticated and [facility]
--- NOTE | 2023-06-18 12:25 | CT_ITS ---
FINAL REPORT TECHNIQUE: Thin section axial CT with IV contrast supplemented with multiplanar reconstruction under CT angiogram protocol. This study was performed with techniques to keep radiation doses as low as reasonably achievable (ALARA). Individualized dose reduction techniques using automated exposure control or adjustment of mA and/or kV according to the patient''s size were employed. NASCET criteria was utilized during interpretation. CLINICAL HISTORY: stroke alert FINDINGS: Aortic arch: Arch shows no significant narrowing. Great vessel origins are widely patent. Right carotid: No significant stenosis is seen of the cervical common or internal carotid artery. Left carotid: No significant stenosis is seen of the cervical common or internal carotid artery. There is mild plaque in the carotid bulbs bilaterally. Vertebral: Left vertebral artery is dominant. No significant stenosis is present. IMPRESSION: No significant stenosis identified. Reviewed, Interpreted and Dictated by Taurus Rivera III, MD Transcribed by Alice Parrish Authenticated and [facility]
--- NOTE | 2023-06-18 12:25 | CT_ITS ---
FINAL REPORT CLINICAL HISTORY: stroke alert COMPARISON: 07/09/2022 FINDINGS: Axial images of the head were obtained without contrast. Coronal and sagittal reformatted images were also obtained. This study was performed with techniques to keep radiation doses as low as reasonably achievable (ALARA). Individualized dose reduction techniques using automated exposure control or adjustment of mA and/or kV according to the patient's size were employed. There is generalized age appropriate atrophy. There is no evidence of intracranial hemorrhage or mass. There are periventricular low-density areas consistent with mild chronic ischemic/gliotic microvascular change, unchanged since the prior CT. The ventricular size is within normal limits. There is no evidence of shift of the midline structures. No skull abnormality is seen on the bone window images. IMPRESSION: No acute intracranial abnormality. Mild chronic ischemic/gliotic microvascular change and age-appropriate atrophy. Reviewed, Interpreted and Dictated by Taurus Rivera III, MD Transcribed by Esther Carlos Authenticated and . [facility]
--- NOTE | 2023-06-18 12:27 | HMH.EDGENADL ---
Discharge Plan Disposition Patient Disposition: Xfer Short-Term Hosp Condition: Fair Prescriptions Prescriptions: No Action albuterol sulfate [Ventolin HFA] 90 mcg/actuation HFA aerosol inhaler See Rx Instructions .ROUTE .COMPLEX Qty: 18 1RF Dose Instruction: 2 PUFFS BY MOUTH EVERY FOUR HOURS NEEDED FOR SHORTNESS OF BREATH Rx Instructions: 2 PUFFS BY MOUTH EVERY FOUR HOURS NEEDED FOR SHORTNESS OF BREATH cholecalciferol (vitamin D3) 50 mcg (2,000 unit) capsule 50 mcg PO DAILY Qty: 90 3RF cholecalciferol (vitamin D3) 1,250 mcg (50,000 unit) capsule 1,250 mcg PO WEEKLY Qty: 14 3RF fluticasone propion-salmeterol [Advair Diskus] 250-50 mcg/dose blister with device See Rx Instructions .ROUTE .COMPLEX Qty: 60 3RF Dose Instruction: INHALE 1 PUFF BY MOUTH TWICE DAILY FOR ALLERGY SYMPTOMS Rx Instructions: INHALE 1 PUFF BY MOUTH TWICE DAILY FOR ALLERGY SYMPTOMS loratadine 10 mg capsule 10 mg PO DAILY Qty: 90 0RF lisinopril 10 mg tablet 10 mg PO DAILY Rx Instructions: 10 mg orally; Referrals Follow up/Referrals: John Yoon MD [Primary Care Provider] - See instructions Clinical Impressions Clinical Impression: Convulsions, status epilepticus, High anion gap metabolic acidosis Altered mental status Qualifiers: Altered mental status type: coma Coma depth: Eden coma 9-12 Coma timing: in the field (EMT or ambulance) Qualified Code(s): R40.2421 - Eden coma scale score 9-12, in the field [EMT or ambulance] Stand Alone Forms Stand Alone Forms: Transfer Record - ED Discharge ED Provider: Alicia White Adult HPI General Chief complaint: Neuro Symptoms/Deficit Stated complaint: poss Stroke Time Seen by Provider: 06/18/23 12:25 History of Present Illness HPI narrative: This 67-year-old female with a history of hypertension and reportedly prior [place] and stroke though this is not confirmed presents to the emergency department with concern for altered mental status, possible stroke. Patient's last known normal was approximately 10 AM, 2.25 hours prior to arrival. Patient sister at bedside states that she got a call from the patient's boyfriend at around 11 that she was not talking. Reportedly boyfriend stepped out around 10 AM and patient was normal at that time, when he came back she was not speaking to him and would not follow directions or respond to him. Sister at bedside states patient was completely normal yesterday and has not had any recent sickness or other complaints. Patient is normally a GCS 15, oriented, and takes care of herself. She will occasionally use a walker to ambulate, but does not have any unilateral baseline deficits that they know of. Related Data Home Medications Medication Instructions Recorded Confirmed lisinopril 10 mg tablet 10 mg PO DAILY 06/18/23 06/18/23 Previous Rx's Medication Instructions Recorded albuterol sulfate 90 mcg/actuation See Rx Instructions .Route 05/06/23 aerosol inhaler (Ventolin HFA) .COMPLEX #18 grams cholecalciferol (vitamin D3) 1,250 1,250 mcg PO WEEKLY #14 caps 05/06/23 mcg (50,000 unit) capsule cholecalciferol (vitamin D3) 50 50 mcg PO DAILY #90 caps 05/06/23 mcg (2,000 unit) capsule fluticasone 250 mcg-salmeterol 50 See Rx Instructions .Route 05/06/23 mcg/dose blistr powdr for .COMPLEX #60 ea inhalation (Advair Diskus) loratadine 10 mg capsule 10 mg PO DAILY Allergy symptoms 05/06/23 #90 caps Allergies Allergy/AdvReac Type Severity Reaction Status Date / Time No Known Allergies Allergy Verified 05/06/23 11:07 [facility] Disclaimer: The information contained in this section may have been updated after the patient was seen, as this information can be updated by other users. Medical History Hypertension Urinary Incontinence Social History Smoking Status:
--- NOTE | 2023-06-18 12:45 | PC.NURSE ---
pt started having a seizure called for nurses and doctor to come in
--- NOTE | 2023-06-18 12:45 | PC.NURSE ---
Seizure pads placed
--- NOTE | 2023-06-18 12:52 | ECG_ITS ---
APPROVED REPORT Exam: Resting ECG HR:111 bpm ECG Measurements Heart Rate 111 AXES VA 177 P 77 QRSd 93 QRS 70 QT 304 T 66 QTc 370 Conclusion SINUS TACHYCARDIA ABNORMAL RHYTHM ECG UNCONFIRMED REPORT Electronically signed by : Connor Sanchez MD 06/19/2023 21:40:28
[2023-06-18 12:53] LABS: Basophils % 0.3 % (0.1-2.0); Eosinophils # 0.1 K/mm3 (0.0-0.4); Eosinophils % 0.9 % (0.1-12.0); Hematocrit 39.8 % (37.0-47.0); Hemoglobin 14.2 g/dL (12.2-16.2); Lymphocytes # 1.1 K/mm3 (0.7-4.5); Mean Corpuscular HGB Conc 35.6 g/dL (31.8-35.4); Mean Corpuscular Hemoglobin 34.2 pg (27.0-31.2); Mean Corpuscular Volume 96.2 fl (81-99); Mean Platelet Volume 7.8 fl (7.4-10.4); Monocytes # 0.3 K/mm3 (0.1-1.0); Monocytes % 3.7 % (1.7-9.3); Neutrophils # 7.7 K/mm3 (1.8-7.8); Neutrophils % 83.1 % (37.0-80.0); Platelet Count 394 K/mm3 (142-424); Red Blood Count 4.14 M/mm3 (4.20-5.40); Red Cell Distribution Width 13.4 % (11.5-17.5); White Blood Count 9.2 K/mm3 (4.8-10.8)
[2023-06-18 13:06] LABS: VBG Base Excess -18.1 mmol/L (-2.4-2.3); VBG HCO3 13.9 mmol/L (23-30); VBG Oxygen Saturation 96.7 % (50-70); VBG PO2 118.6 mmol/L (28-40); VBG Total CO2 15.9 mmol/L (23-27)
[2023-06-18 13:08] LABS: VBG PH 6.95 mmol/L (7.31-7.41)
[2023-06-18 13:09] LABS: VBG PCO2 64.7 mmol/L (35-51)
[2023-06-18 13:13] LABS: Chloride 92 mmol/L (98-107); Sodium 130 mmol/L (136-145)
--- NOTE | 2023-06-18 13:14 | PC.NURSE ---
pt to ct via stretcher for CTAs
--- NOTE | 2023-06-18 13:14 | PC.NURSE ---
pt had another seizure and Gino RN were at bs
[2023-06-18 13:15] LABS: Blood Urea Nitrogen 3 mg/dl (7-17); Estimated Glomerular Filt Rate 100 ml/min (>60); GFR (African American) 121 ML/MIN (>60)
[2023-06-18 13:16] LABS: Alanine Aminotransferase 35 U/L (12-78); Albumin/Globulin Ratio 1.6 (1.1-1.8); Alkaline Phosphatase 89 U/L (38-126); Aspartate Amino Transferase 45 U/L (14-36); Bilirubin,Total 0.5 mg/dl (0.2-1.3); Calcium 8.6 mg/dl (8.4-10.2); Carbon Dioxide 18 mmol/L (22.0-30.0); Globulin 3.1 g/dL (1.3-3.2); Glucose 178 mg/dl (74-100); Total Protein,Serum 8.1 g/dl (6.3-8.2)
[2023-06-18 13:18] LABS: Activated Partial Thrombo Time 30.4 seconds (22.8-30.6); INR 1.06 (0.9-1.1); Prothrombin Time 11.4 seconds (10.1-12.5)
--- NOTE | 2023-06-18 13:22 | PC.NURSE ---
pt at ct
[2023-06-18 13:25] LABS: Lactic Acid 11.6 mmol/L (0.7-2.1)
[2023-06-18 13:35] LABS: Ethyl Alcohol < 10 mg/dl (0-10)
--- NOTE | 2023-06-18 13:36 | PC.NURSE ---
requesting rad to [employer] and make a disc of images
--- NOTE | 2023-06-18 13:37 | PC.NURSE ---
Calling [facility] for pt transfer [place] for [facility]
--- NOTE | 2023-06-18 13:43 | PC.NURSE ---
Called [facility] for possible transfer they stated they have no bed would have to be accepted and placed on wait list, said no to call other facilities
--- NOTE | 2023-06-18 13:51 | PC.NURSE ---
called [facility] for pt transfer for helen waiting call back
--- NOTE | 2023-06-18 14:02 | PC.NURSE ---
called for pt transfer for helen waiting for call light at
--- NOTE | 2023-06-18 14:03 | PC.NURSE ---
called back with from [facility] to speak with
--- NOTE | 2023-06-18 14:09 | PC.NURSE ---
PT re-adjusted in bed for comfort as well as cleaned up from soiled linens. All belongings (house shoes, socks, pants, shirt and bandana) placed in belonging bags with pt label on them at BS.
[2023-06-18 14:10] LABS: Acetaminophen < 10 ug/ml (10-30); Salicylate < 1.0 mg/dL (2.0-20.0)
--- NOTE | 2023-06-18 14:18 | PC.NURSE ---
speaking with helen HORAN for possible transfer
[2023-06-18 14:24] LABS: Microscopic, Urine URINE MICROSCOPIC (MICROSCOPIC)
--- NOTE | 2023-06-18 14:26 | PC.NURSE ---
pt accepted to for ICU bed per Dr. Torres- waiting contact manager back for bed assignment
--- NOTE | 2023-06-18 14:27 | PC.NURSE ---
Addendum entered by [place] Figueroa, JULIANNE 06/18/23 14:36: Accepting Lionel HORAN was Selwyn Rios not Original Note: at has accepted pt for an ICU bed waiting for call back for bed assignment
--- NOTE | 2023-06-18 14:29 | PC.NURSE ---
PT HAS BEEN ACCEPTED TO [facility]. AWAITING CALL FROM TRANSFER CENTER WITH BED ASSIGNMENT AND NURSE REPORT
[2023-06-18 15:06] LABS: Appearance,Urine CLEAR (Clear); Bilirubin,Urine Negative (Negative); Blood, Urine Negative (Negative); Color,Urine YELLOW (Yellow); Glucose,Urine (UA) Negative (Negative); Ketones,Urine 1+ (Negative); Leukocyte Esterase,Urine Negative (Negative); Nitrate,Urine Negative (Negative); Protein,Urine Negative (Negative); Urobilinogen,Urine 0.2 EU/dl (0.2)
--- NOTE | 2023-06-18 15:06 | PC.NURSE ---
calling for bed update and to see if they could come get the pt due to [facility] being out of town if not we will fly pt to [facility] waiting for a call back stated in bed in a few minutes
--- NOTE | 2023-06-18 15:13 | PC.NURSE ---
[facility] called with bed assignment pt will be going to [facility] ICU Bed #15 the number to call report is [phone]
--- NOTE | 2023-06-18 15:18 | PC.NURSE ---
Speaking with buggy department to see if the could come get the pt by ground. on hold waiting for confirmation
[2023-06-18 15:19] LABS: Barbiturates Screen,Urine Negative ng/ml (<200); Benzodiazepines Screen,Urine Negative ng/ml (<200)
[2023-06-18 15:20] LABS: Amphetamine/Metha Screen,Urine Negative ng/ml (<1000)
--- NOTE | 2023-06-18 15:20 | PC.NURSE ---
has declined by ground for transport for pt they are putting in request for flying pt to From [facility]
[2023-06-18 15:21] LABS: Cannabinoid Screen,Urine Negative ng/ml (<50); Cocaine Screen,Urine Negative ng/ml (<300)
[2023-06-18 15:22] LABS: Methadone Screen,Urine Negative ng/ml (<300); Opiate Screen,Urine Negative ng/ml (<300)
[2023-06-18 15:23] LABS: Phencyclidine Screen,Urine Negative ng/ml (<25)
[2023-06-18 15:40] LABS: Bacteria,Urine Trace /lpf; Squamous Epithelial Cell,Urine Occasional #/hpf (0-5); WBC,Urine Occasional #/hpf (0-3)
--- NOTE | 2023-06-18 15:48 | PC.NURSE ---
Gave report to Carol MARKS @ Neuro ICU Bed #15. Flight has been faxed a PCS form.
--- NOTE | 2023-06-18 16:03 | PC.NURSE ---
[facility] is here for transport to
--- NOTE | 2023-06-18 16:23 | PC.NURSE ---
Gave report to Flight crew. Assisted them in transferring pt to their stretcher.
[2023-06-18 17:05] LABS: Reflex Lactic Add Lactic Reflex
--- NOTE | 2023-06-18 20:30 | PC.NURSE ---
records sent to .
== END 2023-06-18 16:22 | disposition short-term general hospital (02) ==
PROVIDERS: Emergency Provider Emergency Medicine; PCP Emergency Medicine
DX: G40.901 Epilepsy, unspecified, not intractable, with status epilepticus (principal); R40.2421 Glasgow coma scale score 9-12, in the field [EMT or ambulance]; E87.29 Other acidosis; F17.210 Nicotine dependence, cigarettes, uncomplicated; I10 Essential (primary) hypertension
CPT/HCPCS: 70450; 70496; 70498; 71045; 80053; 80305; 80329; 81001; 82803; 83605; 85025; 85610; 85730; 87040; 93005; 96365; 96366; 96367; 96372; 96375; 99291; J0696; J1953; Q9967

== ENCOUNTER 2024-04-29 10:23 | Outpatient (CLI) | payer MEDICARE, MEDICAID, SELFPAY ==
--- NOTE | 2024-04-29 10:27 | MM_ITS ---
PROCEDURE INFORMATION: Exam: MG Bilateral Screening 3D Mammography Exam date and time: 04/29/2024 10:28 AM Age: 68 years old Clinical indication: Screening examination TECHNIQUE: Imaging protocol: Bilateral Screening tomosynthesis and 2D mammography including computer-aided detection (CAD) when performed. COMPARISON: 1. MG MM DIG SCREENING MAMM BI W/CAD 07/21/2020 9:32 AM 2. MG MM NEEDLE LOC LT 06/16/2019 9:08 AM FINDINGS: MAMMOGRAPHY: Breast composition: The breasts are heterogeneously dense, which may obscure small masses. Mass: No suspicious masses. Architectural distortion: Postsurgical changes are redemonstrated in the left breast. Calcifications: No suspicious calcifications. Asymmetric density: None. Skin thickening: None. Axillary adenopathy: None. IMPRESSION: No mammographic evidence of malignancy. Annual screening is recommended unless otherwise clinically indicated. ASSESSMENT: BI-RADS Category 2: Benign.
== END 2024-04-29 23:59 | disposition home or self-care (01) ==
LOC: RAD 10:24
PROVIDERS: PCP Nurse Practitioner Family; Visit Provider Nurse Practitioner Family
DX: Z12.31 Encounter for screening mammogram for malignant neoplasm of breast (principal)
CPT/HCPCS: 77063; 77067

== ENCOUNTER 2024-06-28 09:39 | Day surgery (SDC) | payer MEDICARE, MEDICAID, SELFPAY ==
[2024-06-22 14:05] VITALS: BMI 21.0
[2024-06-28 10:32] VITALS: BP 137/70; PULSE 66; RESP 16; TEMP 36.6; O2SAT 100
[2024-06-28] MEDS: 0.9 % SODIUM CHLORIDE 1000ML 1,000 ML 25 ML IV (10:41)
--- NOTE | 2024-06-28 10:44 | P.PNANES_ITS ---
[facility] Disclaimer: The information contained in this section may have been updated after the patient was seen, as this information can be updated by other users. Medical History Hx of stroke associated with blood clotting tendency COPD (chronic obstructive pulmonary disease) Colon cancer screening Hypertension Urinary Incontinence Surgical History Hx of colonoscopy Family History (Updated 06/28/24 @ 10:24 by Irene Becerra RN) Other Family history of hypertension Social History Smoking Status: Current every day smoker tobacco type: cigarettes packs per day: 1 second hand exposure: Yes alcohol intake: current alcohol intake frequency: 3 or more drinks per day substance use type: denies use current occupational status: other Travel in the last 8 weeks: None household members: spouse housing: apartment current occupational exposures/hazards: No caffeine: No H Anesthesia Checklist Patient Identification Patient Identification: Arm Band and Verbal (Name & ) Structural Data Admitted From: Home Planned Operative Procedure/s: Colonoscopy Consent for Planned Operative Procedure(s) Verified: Yes Verified Documents: Surgical Consent and History and Physical NPO Status Verified Time NPO: 09:45 Chart Verification Results Verified: CBC, BMP, ECG and Chest Xray Additional verifications Patient : No Anesthesia Reactions: No Hx Blood Transfusions: No Blood Transfusion Reaction: No Cardiovascular Assessment Heart Sounds: S1 & S2 Pulse Rhythm: Irregular Airway Assessment Mallampati Score:: Class II C-Spine Mobility Assessed: Yes (FROM demonstrated) TMJ Mobility Assessed: Yes Dentition: Dentures-good fit (Nothing loose per pt.) Neurological Assessment Level of Consciousness: Awake, Alert, Appropriate and Follows Commands Hx Seizures: No Numbness or tingling in extremities: No Anesthesia Plan Anesthesia Risk discussed: Yes Anesthesia Plan: Verified ASA Class: III Anesthesia Type: MAC
--- NOTE | 2024-06-28 11:44 | EXP.HP ---
History of Present Illness *Admission Date: 06/28/24 *Reason for visit:: Screening *History of present illness: Mrs. Dolan is a 68-year-old female who is here for initial screening colonoscopy. The examination is deemed medically necessary for colonoscopy. The patient has been seen, interviewed and examined prior to the procedure by both myself and the anesthesia provider. [facility] Disclaimer: The information contained in this section may have been updated after the patient was seen, as this information can be updated by other users. Medical History (Updated 06/28/24 @ 11:45 by Yousuf Roldan II, MD) Hx of stroke associated with blood clotting tendency COPD (chronic obstructive pulmonary disease) Colon cancer screening Hypertension Urinary Incontinence Surgical History Hx of colonoscopy Family History (Updated 06/28/24 @ 10:24 by Irene Becerra RN) Other Family history of hypertension Social History Smoking Status: Current every day smoker tobacco type: cigarettes packs per day: 1 second hand exposure: Yes alcohol intake: current alcohol intake frequency: 3 or more drinks per day substance use type: denies use current occupational status: other Travel in the last 8 weeks: None household members: spouse housing: apartment current occupational exposures/hazards: No caffeine: No Other Medical History Have you received the Flu Vaccine for this season: No Have you received the Pneumonia Vaccine: No Review of Systems Review of Systems Review of systems (narrative): Negative *Cardiovascular Comments: Negative *Gastrointestinal Comments: Negative *Genitourinary Comments: Negative *Musculoskeletal Comments: Negative *Neurologic Comments: Negative Meds Home Medications and Allergies Home Medications ?Medication ?Instructions ?Recorded ?Confirmed ?Type albuterol sulfate 90 mcg/actuation See Rx Instructions .Route 01/22/24 06/28/24 Rx aerosol inhaler (Ventolin HFA) .COMPLEX #18 grams fluticasone 250 mcg-salmeterol 50 See Rx Instructions .Route 01/22/24 06/28/24 Rx mcg/dose blistr powdr for .COMPLEX #60 ea inhalation (Advair Diskus) fluticasone propionate 50 1 spray intranasal DAILY #16 grams 01/22/24 06/28/24 Rx mcg/actuation nasal spray,suspension (Flonase Allergy Relief) cholecalciferol (vitamin D3) 1,250 1,250 mcg PO WEEKLY #14 caps 02/26/24 06/28/24 Rx mcg (50,000 unit) capsule cholecalciferol (vitamin D3) 50 50 mcg PO DAILY #90 caps 02/26/24 06/28/24 Rx mcg (2,000 unit) capsule atorvastatin 80 mg tablet See Rx Instructions .Route 03/25/24 06/28/24 Rx .COMPLEX #90 tabs levetiracetam 1,000 mg tablet See Rx Instructions .Route 03/25/24 06/28/24 Rx .COMPLEX #180 tabs lisinopril 10 mg tablet See Rx Instructions .Route 04/26/24 06/28/24 Rx .COMPLEX #90 tabs loratadine 10 mg tablet See Rx Instructions .Route 04/26/24 06/28/24 Rx .COMPLEX #90 tabs sodium,potassium,mag sulfates 17.5 See Rx Instructions PO .COMPLEX 06/21/24 Rx gram-3.13 gram-1.6 gram oral soln #354 mL (Suprep Bowel Prep Kit) aspirin 81 mg tablet 81 mg PO DAILY 06/28/24 06/28/24 History New Prescriptions to Start Prescriptions: Allergies Allergy/AdvReac Type Severity Reaction Status Date / Time No Known Allergies Allergy Verified 06/28/24 10:25 Exam Data for Last 24 hours Vital signs and Labs for Last 24 Hours: Temp Pulse Resp BP Pulse Ox O2 Del Method O2 Flow Rate 98 F 66 16 137/70 100 Nasal Cannula 5 06/28/24 10:32 06/28/24 10:32 06/28/24 10:32 06/28/24 10:32 06/28/24 10:32 06/28/24 11:42 06/28/24 11:42 *Routine HEENT Exam Head: Present normocephalic Eye: Present EOMI and PERRL ENT: Present mucous membranes moist *Routine Neck Exam Neck: Present supple *Routine Respiratory Exam Respiratory: Present CTA bilaterally *Routine Cardiovascular Exam Cardiovascular: Present RRR *Routine Abdominal Exam Abdominal: Present soft and normoactive bowel sounds; Absent tenderness *Routine Rectal Exam Rectal:: deferred *Routine Genitalia Exam Genitalia:: deferred *Routine Extremities Exam Extremities: Absent cyanosis, clubbing or edema *Routine Skin Exam Skin: Present warm; Absent rash *Routine Neurological Exam Neurological: Present alert and oriented X3 Assessment and Plan *Assessment and plan (1) Screening for colon cancer: Status: Acute Category: Medical Code(s): Z12.11 - Encounter for screening for malignant neoplasm of colon Plan A/P: 1. Screening for colon cancer/initial screening is the preprocedural diagnosis. The patient will be anesthetized/sedated using MAC sedation. The patient has been seen and examined. Cardiac and lung assessment prior to the examination is stable. Proceed with planned colonoscopy
--- NOTE | 2024-06-28 11:46 | P.PCN_ITS ---
[facility] Procedure Note Date: 06/28/24 Time: 11:50 Procedure Note:: Attempted/aborted colonoscopy Procedure Report: Flexible sigmoidoscopy Endoscopist: Yousuf Roldan II, MD Referring physician: Connor Steinberg MD Date of Procedure: June 28, 2024 Equipment: Olympus 190 variable stiffness pediatric colonoscope Sedation: MAC sedation Indication: Mrs. Dolan is a 68-year-old female who is here for initial screening colonoscopy. She reports no abdominal pain, weight loss, change in her bowel habits or rectal bleeding. She reports no family history of colon cancer. Procedure: Prior to the procedure, a history and physical exam was performed, and patient's medications and allergies were reviewed. The risks, benefits and alternatives of the sedation and procedure were discussed with the patient. All questions were answered and informed consent was obtained. The patient was brought to the procedure room. Patient identification and proposed procedure were verified by the physician and the nurse. The patient was placed in a left lateral decubitus position and the scope was passed under direct vision. Throughout the procedure, the patient's blood pressure, pulse, and oxygen saturations were monitored continuously. The colonoscopy was accomplished without difficulty. The patient tolerated the procedure well. Findings: On digital rectal examination, there was normal rectal tone. The scope was then inserted through the anal canal into the rectum and advanced to 25 cm. There was abundant brown liquid and solid stool and the preparation was very poor. The procedure was aborted. Impression: 1. Poor bowel preparation?aborted colonoscopy Plan: Repeat colonoscopy with improved preparation.
[2024-06-28 11:55] VITALS: BP 92/52; PULSE 67; RESP 16; TEMP 36.7; O2SAT 100
[2024-06-28 12:05] VITALS: BP 105/61; PULSE 89; RESP 17; O2SAT 99
[2024-06-28 12:15] VITALS: BP 115/65; PULSE 70; RESP 17; O2SAT 100
--- NOTE | 2024-06-28 12:22 | SUR.PHASEII ---
Pt family member was irate when bringing back to post op. Family member was very angry that the pt had been here for more than (2) hours and said we are never coming to this hospital again. Pt was apologetic and tried to tell her that everything was fine . Family member did calm down at this point. Dr Roldan spoke to family and after their discussion, family member was insistent on them leaving despite the pt not being in post-op for the full 30 minutes. began to become irate again. Pt was tolerating liquids PO adequately and VSS. Decision was made to let pt discharge early. When going over discharge instructions, pt's locoand and pt both verbalized understanding on all discharge instructions. When wheeling pt out, pt stated that she would be driving them home. At this point, I reexplained that she has been under IV sedation and she cannot drive for the next 24 hours. I then explained that if her cannot drive, then we would be more than happy to call someone for her who is able to. Pt's and pt then both stated that he will drive us home . When pt was wheeled out to the parking lot, pt got into the passenger side and was in drivers seat. Both were in the same seat when leaving the [facility] parking lot.
== END 2024-06-28 12:15 | disposition home or self-care (01) ==
PROVIDERS: PCP Family Medicine; Visit Provider Internal Medicine Gastroenterology
PROC: (CPT G0121; principal; 2024-06-28 12:00)
DX: Z12.11 Encounter for screening for malignant neoplasm of colon (principal); Z53.8 Procedure and treatment not carried out for other reasons
CPT/HCPCS: G0121; J7030

== ENCOUNTER 2024-08-12 13:40 | Outpatient (CLI) | payer MEDICARE, MEDICAID, SELFPAY ==
[2024-08-12 18:43] LABS: Basophils # 0.1 K/mm3 (0-0.2); Basophils % 1.2 % (0.1-2.0); Eosinophils # 0.3 K/mm3 (0.0-0.4); Eosinophils % 4.4 % (0.1-12.0); Hematocrit 34.1 % (37.0-47.0); Lymphocytes # 2.1 K/mm3 (0.7-4.5); Lymphocytes % 30.5 % (10-50); Mean Corpuscular HGB Conc 32.3 g/dL (31.8-35.4); Mean Corpuscular Hemoglobin 29.7 pg (27.0-31.2); Mean Corpuscular Volume 92.2 fl (81-99); Mean Platelet Volume 9.5 fl (7.4-10.4); Monocytes # 0.5 K/mm3 (0.1-1.0); Monocytes % 7.4 % (1.7-9.3); Neutrophils # 3.8 K/mm3 (1.8-7.8); Neutrophils % 56.2 % (37.0-80.0); Platelet Count 385 K/mm3 (142-424); Red Cell Distribution Width 14.1 % (11.5-17.5); White Blood Count 6.8 K/mm3 (4.8-10.8)
[2024-08-12 19:20] LABS: Alanine Aminotransferase 17 U/L (12-78); Alkaline Phosphatase 113 U/L (38-126); Aspartate Amino Transferase 37 U/L (14-36); Bilirubin,Total 0.4 mg/dl (0.2-1.3); Blood Urea Nitrogen 10 mg/dl (7-17); Calcium 9.2 mg/dl (8.4-10.2); Chloride 97 mmol/L (98-107); Chol/HDL Ratio 2.1 (1-3.5); Cholesterol 120 mg/dl (140-200); Estimated Glomerular Filt Rate 72 ml/min (>60); GFR (African American) 87 ML/MIN (>60); Glucose 80 mg/dl (74-100); HDL Cholesterol 57 mg/dl (40-60); Potassium 4.6 mmoL/L (3.5-5.1); Sodium 132 mmol/L (136-145); Total Protein,Serum 6.8 g/dl (6.3-8.2); Triglycerides 116 mg/dl (30-150); VLDL Cholesterol 23 mg/dL (0-40)
[2024-08-12 19:21] LABS: Albumin Level 4.4 g/dl (3.5-5.0); Albumin/Globulin Ratio 1.8 (1.1-1.8); Anion Gap 13.6 mEq/L (5-15); Carbon Dioxide 26 mmol/L (22.0-30.0); Globulin 2.4 g/dL (1.3-3.2)
[2024-08-12 19:50] LABS: Thyroid Stimulating Hormone 2.93 uIU/mL (0.465-4.68)
[2024-08-12 20:22] LABS: 25-OH Vitamin D, Total > 126 ng/mL (30-100)
[2024-08-17 14:28] LABS: Levetiracetam (Keppra) 40.7 ug/mL (10.0-40.0)
== END 2024-08-12 23:59 | disposition home or self-care (01) ==
LOC: LAB.DROPOF 08-16 09:44
PROVIDERS: PCP Family Medicine; Visit Provider Family Medicine
DX: R56.9 Unspecified convulsions (principal); E55.9 Vitamin D deficiency, unspecified; I10 Essential (primary) hypertension; F17.210 Nicotine dependence, cigarettes, uncomplicated
CPT/HCPCS: 80053; 80061; 80177; 82306; 84443; 85025